=== PATIENT | female | born 1950 | race Caucasian/White ===

== ENCOUNTER 2019-09-20 13:45 | Inpatient (IN) | payer MEDICARE, OTHER ==
[~2019-09-20] VITALS: Ht 162.6 cm; Wt 71.7 kg
[~2019-09-20 13:45] MED LIST: ACYCLOVIR200 MG PO; AMBIEN5 MG PO; ATENOLOL50 MG PO; CYCLOBENZAPRINE5 MG PO; ULTRAM50 MG PO
[2019-09-20] MEDS ORDERED: MORPHINE SULFATE INJ 4 MG/ML INJ 1ML IV STA (13:50)
[2019-09-20] MEDS ORDERED: SODIUM CHLORIDE 0.9% 1000ML 1,000 ML IV STA ×2 (13:50→17:30)
[2019-09-20] MEDS ORDERED: ONDANSETRON HCL INJ 2MG/ML 2ML 2 MG/ML VIAL IV STA (13:50)
[2019-09-20] MEDS ORDERED: HYDROMORPHONE 1MG/1ML INJ IV STA (14:19)
--- NOTE | 2019-09-20 14:26 | NUR ---
states abd pain now, "all over." states morphine brought pain from 07/30 to 06/30. md ordered dilaudid and given ivp per md order. states, "thank you, i thought i was going to have to really yell. I hate to see someone i love in pain."
[2019-09-20] MEDS ORDERED: HYDROMORPHONE 1MG/1ML INJ IV NR ×2 (14:30→15:15)
[2019-09-20] MEDS ORDERED: PROPOFOL IV EMULSION 10 MG/ML 20 ML VIAL ONE (14:35)
[2019-09-20] MEDS ORDERED: LIDOCAINE HCL 2% LOCAL INJ 5 ML SDV VIAL INJ ONE (14:35)
[2019-09-20] MEDS ORDERED: ACETAMINOPHEN 1000 MG/100 ML IV ONE (14:35)
[2019-09-20] MEDS ORDERED: DEXAMETHASONE SOD PHOS INJ 4 MG/ML VIAL ONE (14:35)
[2019-09-20] MEDS ORDERED: ONDANSETRON HCL INJ 2MG/ML 2ML 2 MG/ML VIAL ONE (14:35)
[2019-09-20] MEDS ORDERED: KETOROLAC TROMETHAMINE 30 MG/ML VIAL ONE (14:35)
[2019-09-20 14:36] LABS: BASOPHILS # (AUTO) 0.1 (0.0-0.1); BASOPHILS % 0.4 % (0.0-1.0); EOSINOPHILS # (AUTO) 0.1 (0.0-0.4); EOSINOPHILS % 0.5 % (0.0-6.0); HEMATOCRIT 48.2 % (34.2-44.1); HEMOGLOBIN 15.5 g/dL (12.0-16.0); LYMPHOCYTES # (AUTO) 2.2 (1.0-3.2); LYMPHOCYTES % 13.4 % (18.0-39.1); MEAN CORPUSCULAR HEMOGLOBIN 28.9 pg (28-32); MEAN CORPUSCULAR HGB CONC 32.2 g/dL (31-35); MEAN CORPUSCULAR VOLUME 89.8 fL (81-99); MONOCYTES % 6.2 % (4.4-11.3); NEUTROPHILS # (AUTO) 12.7 (2.1-6.9); NEUTROPHILS % 79.1 % (38.7-80.0); PLATELET COUNT 291 x10e3/uL (140-360); RED BLOOD COUNT 5.37 x10e6/uL (3.6-5.1); RED CELL DISTRIBUTION WIDTH 14.3 % (11.7-14.4)
[2019-09-20 14:37] LABS: BILIRUBIN,URINE NEGATIVE (NEGATIVE); CLARITY,URINE SL CLOUDY (CLEAR); COLOR,URINE YELLOW (YELLOW); KETONES,URINE 1+ (NEGATIVE); LEUKOCYTE ESTERASE ,URINE TRACE (NEGATIVE); NITRITE,URINE NEGATIVE (NEGATIVE); PROTEIN,URINE DIPSTICK NEGATIVE (NEGATIVE); URINE UROBILINOGEN 0.2 mg/dL (0.2 - 1)
[2019-09-20 14:49] LABS: ALANINE AMINOTRANSFERASE 16 IU/L (0-55); ALBUMIN 4.1 g/dL (3.5-5.0); ALBUMIN/GLOBULIN RATIO 1.2 (0.8-2.0); ALKALINE PHOSPHATASE 80 IU/L (40-150); AMYLASE 51 U/L (25-125); ANION GAP 18.2 mmol/L (8-16); BLOOD UREA NITROGEN 13 mg/dL (7-26); BUN/CREATININE RATIO 15 (6-25); CALCIUM 9.6 mg/dL (8.4-10.2); CARBON DIOXIDE 23 mmol/L (22-29); CHLORIDE 107 mmol/L (98-107); CREATININE, SERUM 0.84 mg/dL (0.57-1.11); EST GLOMERULAR FILTRATION RATE > 60 ML/MIN (60-); GLUCOSE 105 mg/dL (74-118); LIPASE 30 U/L (8-78); POTASSIUM 4.2 mmol/L (3.5-5.1); SODIUM 144 mmol/L (136-145)
[2019-09-20 14:52] LABS: BACTERIA,URINE RARE /HPF; EPITHELIAL CELLS,URINE FEW /LPF; RBC,URINE 0-5 /HPF (0-5); WBC,URINE (MAN) 0-5 /HPF (0-5)
[2019-09-20] MEDS ORDERED: HYDROMORPHONE 2MG/ML 2 MG/ML ML IV ONE (15:00)
[2019-09-20] MEDS ORDERED: PIPER-TAZ 3.375 GM 50 ML IV ONE (15:00)
[2019-09-20] MEDS ORDERED: IOPAMIDOL 370 MG/ML 200 ML INFUS..BTL INJ ONE (15:11)
[2019-09-20] MEDS ORDERED: SODIUM CHLORIDE 0.9% 50ML 50 ML ONE (15:11)
--- NOTE | 2019-09-20 15:21 | NUR ---
RECEIVED PT REPORT FROM Beth CALVO RN.
--- NOTE | 2019-09-20 16:28 | Diagnostic Imaging Report ---
CT Abdomen And Pelvis with Intravenous Contrast INDICATION: Abdominal pain, nausea ^lower right abd pain ^[id number] ^1530 TECHNIQUE: Thin collimation axial images obtained from the diaphragm to the level of the pubic symphysis following the uneventful administration of 100 cc of low osmolar, nonionic intravenous contrast. Dose reduction techniques used: Automated exposure control, adjustment of the mAs and/or kVp according to patient size, standardized low-dose protocol, and/or iterative reconstruction technique. RADIATION DOSE: Total DLP: 356.19 mGy*cm Estimated effective dose: (DLP x 0.015 x size factor) mSv CTDIvol has been reviewed. It is below the limits set by the Radiation Protocol Committee (RPC). COMPARISON: None. ABDOMEN FINDINGS: Lung Bases: Mild bibasilar atelectasis. Visualized portions of the mediastinum is normal. Liver: Multiple low attenuating lesions throughout the parenchyma measure up to 2.5 x 2.7 cm. Gallbladder: Present and appears normal. No biliary ductal dilatation. Pancreas: Normal attenuation without mass or ductal dilatation. Spleen: Normal in size. No evidence of mass. Adrenal Glands: No evidence for mass. Kidneys: Right: Normal enhancement. No soft tissue mass. No hydronephrosis. Left: Normal enhancement. Cyst in the upper pole measures 1.5 x 1.6 cm with adjacent scar. No hydronephrosis. Circumaortic left renal vein. Lymph Nodes: No enlarged abdominal or periaortic lymph nodes. Several pericecal lymph nodes are mildly prominent. Aorta: Normal in diameter PELVIS FINDINGS: Bowel: Stomach: Normal. Small Bowel: The small bowel is normal in diameter with normal wall thickness. Large Bowel: Circumferential mural thickening of the cecal base with associated inflammation. Remainder of the large bowel is normal in diameter with normal wall thickness. Diverticulosis coli is present throughout, particularly in the descending colon and sigmoid colon without associated inflammation. There is a calcification at the orifice of the appendix. Appendix: Present and is dilated fluid and contains an intraluminal calcification measuring 16 mm. There is extensive periappendiceal inflammation. No loculated fluid collection or air. Bladder: Normal. The uterus is present and atrophic. No adnexal mass. Peritoneum/retroperitoneum: Small amount of pelvic ascites. No loculated fluid collection. Bones: Mild degenerative changes of the lumbar spine, particularly at L2-3 and L5-S1. Soft tissues: Bilateral breast implants. Small fat-containing umbilical hernia IMPRESSION: 1. Acute appendicitis containing appendicolith and extensive periappendiceal inflammation. No loculated fluid collection or air to suggest rupture. Reactive cecal inflammation. 2. Diverticulosis coli. No evidence for acute diverticulitis. No small bowel obstruction. 3. Multiple hepatic and renal cysts. Signed by: Dr. Kwaku Newsome MD on 09/20/2019 4:25 PM
[2019-09-20] MEDS ORDERED: D5.45%NS/KCL 20MEQ 1,000 ML IV SCH (16:40)
[2019-09-20] MEDS ORDERED: DIPHENHYDRAMINE HCL INJ 50 MG/ML VIAL IV PRN (16:45)
[2019-09-20] MEDS ORDERED: ENALAPRILAT IV INJ 1.25 MG/ML VIAL IV PRN (16:45)
--- OUTSIDE RECORDS SUMMARY | 2019-09-20 16:59 | XMS REPORT ---
Author Author [facility] Address Unknown Phone Unavailable Care Team Providers Care Cell Assembly Pinner Name Role Phone Pattie PUGA Unavailable Unavailable Problems This patient has no known problems. Allergies, Adverse Reactions, Alerts This patient has no known allergies or adverse reactions. Medications This patient has no known medications. Results Test Description Test Time Test Comments Text Results Atomic Results Result Comments CT ABDOMEN/PELVIS W 2019-09-20 16:18:00 [facility] [address] [place] [address] Patient Name: MARCUS GAONA MR #: [id number] : 1950 Age/Sex: 69/F Req #: [id number] Adm Physician: Ordered by: KATARINA MCCLOUD LEAD ETL DEVELOPER Report #: [id number] Location: ER Room/Bed: Procedure: [id number] CT/CT ABDOMEN/PELVIS W Exam Date: 09/20/19 Exam Time: 1530 REPORT STATUS: Signed CT Abdomen And Pelvis with Intravenous Contrast I NDICATION: Abdominal pain, nausea lower right abd pain [id number] 1530 TECHNIQUE: Thin collimation axial images obtained from the diaphragm to the level of the pubic symphysis following the uneventful administration of 100 cc of low osmolar, nonionic intravenous contrast. Dose reduction techniques used: Automated exposure control, adjustment of the mAs and/or kVp according to patient size, standardized low-dose protocol, and/or iterative reconstruction technique. RADIATION DOSE: Total DLP: 356.19 mGy*cm Estimated effective dose: (DLP x 0.015 x size factor) mSv CTDIvol has been reviewed. It is below the limits set by the Radiation Protocol Committee (RPC). COMPARISON: None. ABDOMEN FINDINGS: Lung Bases: Mild bibasilar atelectasis. Visualized portions of the mediastinum is normal. Liver: Multiple low attenuating lesions throughout the parenchyma measure up to 2.5 x 2.7 cm. Gallbladder: Present and appears normal. No biliary ductal dilatation. Pancreas: Normal attenuation without mass or ductal dilatation. Spleen: Normal in size. No evidence of mass. Adrenal Glands: No evidence for mass. Kidneys: Right: Normal enhancement. No soft tissue mass. No hydronephrosis. Left: Normal enhancement. Cyst in the upper pole measures 1.5 x 1.6 cm with adjacent scar. No hydronephrosis. Circumaortic left renal vein. Lymph Nodes: No enlarged abdominal or periaortic lymph nodes. Several pericecal lymph nodes are mildly prominent. Aorta: Normal in diameter PELVIS FINDINGS: Bowel: Stomach: Normal. Small Bowel: The small bowel is normal in diameter with normal wall thickness. Large Bowel: Circumferential mural thickening of the cecal base with associated inflammation. Remainder of the large bowel is normal in diameter with normal wall thickness. Diverticulosis coli is present throughout, particularly in the descending colon and sigmoid colon without associated inflammation. There is a calcification at the orifice of the appendix. Appendix: Present and is dilated fluid and contains an intraluminal calcification measuring 16 mm. There is extensive periappendiceal inflammation. No loculated fluid collection or air. Bladder: Normal. The uterus is present and atrophic. No adnexal mass. Peritoneum/retroperito neum: Small amount of pelvic ascites. No loculated fluid collection. Bones: Mild degenerative changes of the lumbar spine, particularly at L2-3 and L5-S1. Soft tissues: Bilateral breast implants. Small fat-containing umbilical hernia IMPRESSION: 1. Acute appendicitis containing appendicolith and extensive periappendiceal inflammation. No loculated fluid collection or air to suggest rupture. Reactive cecal inflammation. 2. Diverticulosis coli. No evidence for acute diverticulitis. No small bowel obstruction. 3. Multiple hepatic and renal cysts. Signed by: Dr. Jaret Newsome MD on 09/20/2019 4:25 PM Dictated By: JARET NEWSOME MD 26 Transcribed By: SONIYA on 09/20/191624 COPY TO: KATARINA MCCLOUD NP
[2019-09-20] MEDS ORDERED: SODIUM CHLORIDE 0.9% 1000ML 1,000 ML ONE (17:26)
[2019-09-20] MEDS: FAMOTIDINE 20 MG/2 ML VIAL IV SCH (17:29)
[2019-09-20 17:59] VITALS: BP 130/66
[2019-09-20] MEDS ORDERED: PIPER-TAZ 3.375 GM 50 ML IV SCH ×2 (18:00→21:00)
[2019-09-20] MEDS: METRONIDAZOLE 500MG/NS 100ML 100 ML IV SCH ×2 (18:05→23:44)
[2019-09-20] MEDS: HYDROMORPHONE 1MG/1ML INJ IV PRN (18:08)
[2019-09-20 18:10] VITALS: BP 130/66
[2019-09-20] MEDS ORDERED: ZOLPIDEM TARTRA10 MG PO (18:23)
--- NOTE | 2019-09-20 19:45 | NUR ---
PATIENT IS OFF THE UNIT FOR SURGERY.
[2019-09-20] MEDS ORDERED: BUPIVACAINE HCL 0.5% INJ 30 ML VIAL INJ ONE (19:58)
[2019-09-20] MEDS: DEXTROSE 5%/LACTATED RINGERS 1,000 ML IV SCH ×2 (20:43→22:16)
[2019-09-20] MEDS ORDERED: ONDANSETRON HCL INJ 2MG/ML 2ML 2 MG/ML VIAL IV PRN (20:45)
[2019-09-20] MEDS ORDERED: ACETAMINOPHEN 325 MG TAB PO PRN (20:45)
[2019-09-20] MEDS ORDERED: MORPHINE SULFATE INJ 4 MG/ML INJ 1ML IV PRN (20:45)
--- NOTE | 2019-09-20 21:30 | NUR ---
PATIENT CAME FROM PACU PER STRETCHER. ALERT AND ORIENTED. NO COMPLAIN OF PAIN AT THIS TIME.
[2019-09-20 21:41] VITALS: BP 113/54
[2019-09-20] MEDS: ZOLPIDEM TARTRATE 10 MG TAB PO PRN (23:44)
[2019-09-21] VITALS (7 sets, daily range): BP systolic 89–112; BP diastolic 52–55
--- NOTE | 2019-09-21 01:48 | Consultation ---
DATE OF CONSULTATION: 09/20/2019 HISTORY OF PRESENT ILLNESS: The patient is a 69-year-old female, who presents with complaints of abdominal pain. She says the pain started three days ago, generalized and became localized to right lower quadrant. She has some associated nausea. She has not had any fever. She came into the emergency room, where evaluation revealed findings suggestive of acute appendicitis. PAST MEDICAL HISTORY: Significant for hypertension for which she takes atenolol. PAST SURGICAL HISTORY: The only previous abdominal surgery is tubal ligation. ALLERGIES: SHE HAS NO KNOWN ALLERGIES. MEDICATIONS: At home are atenolol, tramadol, and Ambien. FAMILY HISTORY: Noncontributory. SOCIAL HISTORY: The patient does not smoke cigarettes. Occasionally drinks alcohol. REVIEW OF SYSTEMS: As stated above, otherwise was negative. PHYSICAL EXAMINATION: GENERAL: The patient is awake and alert, in no distress. VITAL SIGNS: Normal. HEENT: Sclerae not icteric. NECK: Supple with no masses. LUNGS: Equal breath sounds are clear bilaterally. CARDIAC: Regular rate and rhythm with no murmur. ABDOMEN: Tender in the right lower quadrant, but also diffusely tender with signs of possible generalized peritonitis, but greatest in the right lower quadrant. EXTREMITIES: Warm. There is no edema. Pulses are palpable. NEUROLOGIC: Intact. ASSESSMENT: A 69-year-old female with acute appendicitis with signs of peritonitis. PLAN: Laparoscopic appendectomy. Procedure was explained to the patient including risks, benefits, and alternatives. She understands. She has had the opportunity to ask questions. She is aware of the possible need for open surgery. Thank you for asking me to see Ms. Johnson. MD JOSÉ LUIS Yoon/GUNNAR /[id number]
--- NOTE | 2019-09-21 01:53 | Operative Report ---
DATE OF PROCEDURE: 09/20/2019 SURGEON: Yaakov Hilliard MD PREOPERATIVE DIAGNOSIS: Acute appendicitis. POSTOPERATIVE DIAGNOSIS: Acute appendicitis. PROCEDURE: Diagnostic laparoscopy, laparoscopic appendectomy. ANALYTICAL TECH: None. ANESTHESIA: General endotracheal. INDICATIONS AND FINDINGS: The patient is a 69-year-old female, presenting with complaints of abdominal pain, localized to right lower quadrant. At surgery, the patient was found acutely inflamed appendix. TECHNIQUE: After adequate general endotracheal anesthesia, the patient in supine position, the abdomen was prepped and draped in a sterile fashion with ChloraPrep solution. Skin in the umbilicus was infiltrated with 0.5% Marcaine. An incision was made in the umbilicus. Abdominal wall was elevated and Veress needle was introduced. Pneumoperitoneum was then created. A 10 mm trocar and cannula were passed through the umbilical wound. Laparoscopic camera was introduced. Initial laparoscopy revealed inflammatory process in right lower quadrant. A 12 mm trocar and cannulas were placed suprapubically and a 5 mm trocar and cannula were placed in the right upper quadrant. There was adherent small bowel and pericolonic fat over acutely inflamed appendix. The fibrinous adhesions were broken up. The cecum was elevated. The mesoappendix was divided with LigaSure device until the appendix was completely freed down to the cecum. The base of the appendix was then divided with Endo-MILLICENT stapler freeing the appendix completely. The appendix was placed into an Endopouch and brought out through the suprapubic cannula. Care was taken to not touch the abdominal wall. The area of appendectomy was inspected for hemostasis, which was seen to be adequate. It was irrigated with saline. All fluid aspirated and inspected for hemostasis, which was seen to be adequate. Instruments and cannulas were removed. Pneumoperitoneum was evacuated. Wounds were then closed. Fascia in the umbilical and suprapubic wounds closed with 0 Vicryl. Skin to all wounds closed with luz marina. Sterile dressings were applied to each wound. The patient tolerated the procedure well. Estimated blood loss was 5 mL. There were no complications. All counts were correct, and the patient was taken to the recovery room in satisfactory condition. MD JOSÉ LUIS Yoon/TANNERL /[id number]
--- NOTE | 2019-09-21 02:55 | NUR ---
bp rechecked 112/56 mmhg
[2019-09-21] MEDS: PIPER-TAZ 3.375 GM 50 ML IV SCH ×4 (03:05→21:39)
[2019-09-21] MEDS: HYDROMORPHONE 1MG/1ML INJ IV PRN ×3 (03:05→17:53)
[2019-09-21] MEDS: METRONIDAZOLE 500MG/NS 100ML 100 ML IV SCH ×3 (05:26→17:53)
[2019-09-21 06:20] LABS: BASOPHILS % 0.1 % (0.0-1.0); EOSINOPHILS # (AUTO) 0.1 (0.0-0.4); EOSINOPHILS % 0.8 % (0.0-6.0); HEMATOCRIT 40.8 % (34.2-44.1); HEMOGLOBIN 13.4 g/dL (12.0-16.0); LYMPHOCYTES # (AUTO) 0.8 (1.0-3.2); LYMPHOCYTES % 5.1 % (18.0-39.1); MEAN CORPUSCULAR HEMOGLOBIN 29.3 pg (28-32); MEAN CORPUSCULAR HGB CONC 32.8 g/dL (31-35); MEAN CORPUSCULAR VOLUME 89.3 fL (81-99); MONOCYTES # (AUTO) 0.7 (0.2-0.8); MONOCYTES % 4.7 % (4.4-11.3); NEUTROPHILS # (AUTO) 14.1 (2.1-6.9); NEUTROPHILS % 88.7 % (38.7-80.0); PLATELET COUNT 227 x10e3/uL (140-360); RED BLOOD COUNT 4.57 x10e6/uL (3.6-5.1); RED CELL DISTRIBUTION WIDTH 14.5 % (11.7-14.4)
[2019-09-21 06:40] LABS: ANION GAP 11.8 mmol/L (8-16); BLOOD UREA NITROGEN 8 mg/dL (7-26); BUN/CREATININE RATIO 10 (6-25); CALCIUM 8.3 mg/dL (8.4-10.2); CARBON DIOXIDE 24 mmol/L (22-29); CHLORIDE 108 mmol/L (98-107); CREATININE, SERUM 0.82 mg/dL (0.57-1.11); EST GLOMERULAR FILTRATION RATE > 60 ML/MIN (60-); GLUCOSE 185 mg/dL (74-118); POTASSIUM 3.8 mmol/L (3.5-5.1); SODIUM 140 mmol/L (136-145)
--- NOTE | 2019-09-21 07:00 | NUR ---
received am report and rounds done. pt is alert sitting up in bed, no s/s of distress. iv line was flushed and ivf restarted. call light within reach and instructed pt to call RN for help.
[2019-09-21] MEDS: FAMOTIDINE 20 MG/2 ML VIAL IV SCH ×2 (09:13→17:39)
[2019-09-21] MEDS: HYDROCODONE/APAP 5MG-325MG TAB PO PRN ×2 (10:44→16:46)
[2019-09-21] MEDS ORDERED: SODIUM CHLORIDE 0.9% 250ML 250 ML IV ONE (11:20)
[2019-09-21] MEDS: ONDANSETRON HCL INJ 2MG/ML 2ML 2 MG/ML VIAL IV PRN ×2 (12:11→17:53)
[2019-09-21] MEDS: DEXTROSE 5%/LACTATED RINGERS 1,000 ML IV SCH ×2 (12:43→20:43)
[2019-09-21] MEDS ORDERED: MAGNESIUM HYDROXIDE 30 ML UDC PO ONE (15:15)
--- NOTE | 2019-09-21 19:59 | NUR ---
RECEIVED PT IN BED AOX3 RESPIRATIONS ARE EVEN AND UNLABORED .DENIES PAIN F/C INTACT DRAINING CLEAR URINE .CALL LIGHT WITH IN REACH .CONTINUE TO MONITOR Addendum: 09/21/19 at 2001 by Deana Brito RN WRONG PT
--- NOTE | 2019-09-21 20:02 | NUR ---
RECEIVED PT IN BED AOX3 RESPIRATIONS ARE EVEN AND UNLABORED .3 SITES ABD BAND PT GETTING D5LR 125CC/HR .CALL LIGHT WITH IN REACH .CONTINUE TO MONITOR
[2019-09-21] MEDS: ZOLPIDEM TARTRATE 10 MG TAB PO PRN (21:00)
[2019-09-22] VITALS: BP 96/54
[2019-09-22] MEDS: HYDROMORPHONE 1MG/1ML INJ IV PRN ×3 (02:43→09:13)
[2019-09-22] MEDS: PIPER-TAZ 3.375 GM 50 ML IV SCH ×2 (02:44→09:13)
[2019-09-22 04:00] VITALS: BP 99/54
[2019-09-22] MEDS: METRONIDAZOLE 500MG/NS 100ML 100 ML IV SCH ×2 (05:50)
[2019-09-22] MEDS: DEXTROSE 5%/LACTATED RINGERS 1,000 ML IV SCH (05:50)
--- NOTE | 2019-09-22 07:00 | NUR ---
received am report and rounds done. pt is alert sitting up in bed, no s/s of distress. call lightwithin reach and instructed pt to call RN for help.
[2019-09-22 07:48] VITALS: BP 138/60
[2019-09-22 07:57] VITALS: BP 138/60
[2019-09-22] MEDS: FAMOTIDINE 20 MG/2 ML VIAL IV SCH (09:13)
[2019-09-22] MEDS: ONDANSETRON HCL INJ 2MG/ML 2ML 2 MG/ML VIAL IV PRN (09:13)
[2019-09-22 11:40] VITALS: BP 124/76
== END 2019-09-22 11:53 | disposition home or self-care (01) | DRG 340 ==
LOC: ER 13:45 → ERHOLD 16:40 → MED/SURG3 17:51
PROC: 0DTJ4ZZ Resection of Appendix, Percutaneous Endoscopic Approach (ICD-10-PCS; 2019-09-20)
PROC: 0DTJ4ZZ Resection of Appendix, Percutaneous Endoscopic Approach (ICD-10-PCS; principal; 2019-09-20 20:04)
DX: K35.33 Acute appendicitis with perforation, localized peritonitis, and gangrene, with abscess (principal); I10 Essential (primary) hypertension; F32.9 Major depressive disorder, single episode, unspecified
CPT/HCPCS: 36415; 74177; 80048; 80053; 81001; 82150; 83690; 85025; 88304; 93005; 99284; J1100; J1170; J1885; J2001; J2270; J2405; J2543; J7030; J7050; Q9967

== ENCOUNTER 2020-06-08 22:13 | Emergency (ER) | payer MEDICARE, OTHER ==
[~2020-06-08] VITALS: Ht 162.6 cm; Wt 63.5 kg
[~2020-06-08 22:13] MED LIST changes: +ZOLPIDEM TARTRA10 MG PO
[2020-06-08] MEDS ORDERED: PANTOPRAZOLE 40 MG 10ML VIAL IV STA (22:23)
[2020-06-08] MEDS ORDERED: BELLADONNA ALK/PHENOBARBITAL 5 ML UDC PO ONE (22:30)
[2020-06-08] MEDS ORDERED: LIDOCAINE VISC 2% SOLN 15 ML UDC PO ONE (22:30)
[2020-06-08] MEDS ORDERED: MAGNESIUM/ALUMINUM/SIMETHICONE 30 ML UDC PO ONE (22:30)
[2020-06-08 22:35] LABS: BASOPHILS # (AUTO) 0.1 (0.0-0.1); BASOPHILS % 0.6 % (0.0-1.0); EOSINOPHILS # (AUTO) 0.3 (0.0-0.4); EOSINOPHILS % 3.4 % (0.0-6.0); HEMATOCRIT 46.1 % (34.2-44.1); HEMOGLOBIN 14.7 g/dL (12.0-16.0); LYMPHOCYTES # (AUTO) 3.6 (1.0-3.2); LYMPHOCYTES % 36.3 % (18.0-39.1); MEAN CORPUSCULAR HEMOGLOBIN 29.1 pg (28-32); MEAN CORPUSCULAR HGB CONC 31.9 g/dL (31-35); MEAN CORPUSCULAR VOLUME 91.3 fL (81-99); NEUTROPHILS # (AUTO) 4.9 (2.1-6.9); NEUTROPHILS % 49.5 % (38.7-80.0); PLATELET COUNT 231 x10e3/uL (140-360); RED BLOOD COUNT 5.05 x10e6/uL (3.6-5.1); RED CELL DISTRIBUTION WIDTH 13.2 % (11.7-14.4)
[2020-06-08 22:54] LABS: AMYLASE 66 U/L (25-125); LIPASE 58 U/L (8-78)
[2020-06-08 22:56] LABS: ALANINE AMINOTRANSFERASE 22 IU/L (0-55); ALBUMIN 3.9 g/dL (3.5-5.0); ALBUMIN/GLOBULIN RATIO 1.1 (0.8-2.0); ALKALINE PHOSPHATASE 80 IU/L (40-150); ANION GAP 15.7 mmol/L (8-16); BLOOD UREA NITROGEN 14 mg/dL (7-26); BUN/CREATININE RATIO 15 (6-25); CALCIUM 9.6 mg/dL (8.4-10.2); CARBON DIOXIDE 26 mmol/L (22-29); CHLORIDE 106 mmol/L (98-107); CREATINE KINASE 62 IU/L (29-168); CREATININE, SERUM 0.91 mg/dL (0.57-1.11); EST GLOMERULAR FILTRATION RATE > 60 ML/MIN (60-); GLUCOSE 101 mg/dL (74-118); POTASSIUM 3.7 mmol/L (3.5-5.1); SODIUM 144 mmol/L (136-145)
--- OUTSIDE RECORDS SUMMARY | 2020-06-08 23:07 | XMS REPORT | Continuity of Care Document ---
Author Author [facility] t Organization [facility] Address [address] [place] [address] Phone Unavailable Care Team Providers Care Construction Specialist Name Role Phone TRACEY JARA, ERNESTINE FRANKANFORMERLY [facility] PCP Pattie PUGA Attphys Unavailable Payers Payer Name Policy Type Policy Number Effective Date Expiration Date S harrison Miscellaneous Ppo [id number] 2017 00:00:00 [facility] Medicare A & B [id number] 2017 00:00:00 [facility] Problems Condition Name Condition Details Condition Category Status Onset Date Resolution Date Last Treatment Date Treating Clinician Comments Source Chest pain Chest pain Problem Active 2016-07-10 00:00:00 [facility] Appendicitis with peritonitis Appendicitis with peritonitis Problem Active [facility] Acute appendicitis Appendicitis, acute Problem Active [facility] Allergies, Adverse Reactions, Alerts Allergy Name Allergy Type Status Severity Reaction(s) Onset Date Inacti ve Date Treating Clinician Comments Source No Known Contrast Allergies DA Active U 2004-10-27 00:00: 00 [facility] No Known Drug Allergies DA Active U 2004-10-27 00:00:00 [facility] No Known Food Allergies DA Active U 2004-10-27 00:00:00 [facility] No Known Other Allergies DA Active U 2004-10-27 00:00:00 [facility] Medications Ordered Medication Name Filled Medication Name Start Date Stop Da te Current Medication? Ordering Clinician Indication Dosage Frequency Signature (SIG) Comments Components Source Atenolol 50 Mg Tablet Atenolol 50 Mg Tablet Yes 50 Daily [facility] Tramadol Hcl (Ultram) 50 Mg Tablet Tramadol Hcl (Ultram) 50 Mg Tablet Yes 50 Every 6 Hours as needed for Pain [facility] Zolpidem Tartrate 10 Mg Tablet Zolpidem Tartrate 10 Mg Tablet Yes 10 Bedtime as needed for Insomnia [facility] Acyclovir 200 Mg Capsule, 800 Mg Oral Acyclovir 200 Mg Capsule, 800 Mg Oral 2019-09-20 00:00:00 No 800 As Needed [facility] Cyclobenzaprine Hcl (Flexeril) 5 Mg Tablet, 5 Mg Oral Cyclobenzaprine Hcl (Flexeril) 5 Mg Tablet, 5 Mg Oral 2019-09-20 00:00:00 No 5 Bedtime as needed for Pain [facility] Zolpidem Tartrate (Ambien) 5 Mg Tablet, 5 Mg Oral Zolp idem Tartrate (Ambien) 5 Mg Tablet, 5 Mg Oral 2019-09-20 00:00:00 No 5 Bed time [facility] Procedures Procedure Date / Time Performed Performing Clinician [facility] Computed tomography of abdomen and pelvis with contrast 2018 00:00:00 KATARINA MCCLOUD [facility] RESECTION OF APPENDIX, PERCUTANEOUS ENDOSCOPIC APPROACH 2018 00:00:00 GREGORY LOZOYA [facility] Encounters Start Date/Time End Date/Time Encounter Type [facility] ID Source 2019-10-19 22:31:00 2019-10-19 22:54:00 Departed Emergency Room [facility] [id number] [facility] 2019-09-20 16:40:00 2019-09-22 11:53:00 Discharged Inpatient 1 TRACEY PUGA [facility] [id number] [facility] Results Test Description Test Time Test Comments Results Result Comments Source Sodium Level 2019-09-21 06:42:00 Test Item Sodium Level (test code = 2951-2) 140 136-145 [facility] Wfzcg3190-88-50 06:42:00* Test Item Value Reference Range Interpretation Comments Potassium Level (test code = 2823-3) 3.8 3.5-5.1 [facility] HospitalChloride Lhicw6880-79-92 06:42:00* Test Item Value Reference Range Interpretation Comments Chloride Level (test code = 2075-0) 108 98-107 H [facility] HospitalCarbon Dioxide Kdmlc6447-96-03 06:42:00* Test Item Value Reference Range Interpretation Comments Carbon Dioxide Level (test code = 2028-9) 24 22-29 [facility] HospitalAnion Gbi8297-86-25 06:42:00* Test Item Value Reference Range Interpretation Comments Anion Gap (test code = 32309-4) 11.8 8-16 [facility]Blood Urea Nueesarq5628-56-98 06:42:00* Test Item Value Reference Range Interpretation Comments Blood Urea Nitrogen (test code = 3094-0) 8 7-26 [facility] HospitalCreatinine2019-12-02 06:42:00* Test Item Value Reference Range Interpretation Comments Creatinine (test code = 2160-0) 0.82 0.57-1.11 [facility] HospitalBUN/Creatinine Akgqm0719-33-62 06:42:00* Test Item Value Reference Range Interpretation Comments BUN/Creatinine Ratio (test code = 3097-3) 10 6-25 [facility] HospitalEstimat Glomerular Filtration Rate 2019-09-21 06:42:00* Test Item Value Reference Range Interpretation Comments Estimat Glomerular Filtration Rate (test code = 775012080) > 60 >60 Ranges were taken from the National Kidney Disease Education Program and the [facility] Foundation literature.Reference ranges:60 or greater: Dgygjv55-92 ( for 3 consecutive months): Chronic kidney disease 15 or less: Kidney failureRolling Plains Memorial HospitalGlucose Ukjnb5212-17-38 06:42:00* Test Item Value Reference Range Interpretation Comments Glucose Level (test code = PLC9719) 185 74-118 H [facility] HospitalCalcium Gkkvg9130-40-22 06:42:00* Test Item Value Reference Range Interpretation Comments Calcium Level (test code = 08258-0) 8.3 8.4-10.2 [facility] Bdjtl2192-72-93 06:42:00* Test Item Value Reference Range Interpretation Comments Sodium Level (test code = 2951-2) 140 136-145 [facility] HospitalPotassium Kuios1638-64-86 06:42:00* Test Item Value Reference Range Interpretation Comments Potassium Level (test code = 2823-3) 3.8 3.5-5.1 [facility] HospitalChloride Viebd7562-06-17 06:42:00* Test Item Value Reference Range Interpretation Comments Chloride Level (test code = 2075-0) 108 98-107 H [facility] HospitalCarbon Dioxide Mjscx3053-06-92 06:42:00* Test Item Value Reference Range Interpretation Comments Carbon Dioxide Level (test code = 2028-9) 24 22-29 [facility] HospitalAnion Zer9153-15-52 06:42:00* Test Item Value Reference Range Interpretation Comments Anion Gap (test code = 52439-8) 11.8 8-16 [facility] HospitalBlood Urea Lmteyvtd8179-03-74 06:42:00* Test Item Value Reference Range Interpretation Comments Blood Urea Nitrogen (test code = 3094-0) 8 7-26 [facility] HospitalCreatinine2019-12-02 06:42:00* Test Item Value Reference Range Interpretation Comments Creatinine (test code = 2160-0) 0.82 0.57-1.11 [facility] HospitalBUN/Creatinine Vjccz5972-08-08 06:42:00* Test Item Value Reference Range Interpretation Comments BUN/Creatinine Ratio (test code = 3097-3) 10 6-25 [facility] HospitalEstimat Glomerular Filtration Rate 2019-09-21 06:42:00* Test Item Value Reference Range Interpretation Comments Estimat Glomerular Filtration Rate (test code = 851219115) > 60 >60 Ranges were taken from the National Kidney Disease Education Program and the [place] Kidney Foundation literature.Reference ranges:60 or greater: Ovcrvz91-84 ( for 3 consecutive months): Chronic kidney disease 15 or less: Kidney failureRolling Plains Memorial HospitalGlucose Ffyrz1817-10-64 06:42:00* Test Item Value Reference Range Interpretation Comments Glucose Level (test code = KZG9472) 185 74-118 H [facility] HospitalCalcium Hsxbk1698-67-48 06:42:00* Test Item Value Reference Range Interpretation Comments Calcium Level (test code = 19263-1) 8.3 8.4-10.2 L [facility] HospitalWhite Blood Omfhj9619-84-02 06:26:00* Test Item Value Reference Range Interpretation Comments White Blood Count (test code = 6690-2) 15.88 4.8-10.8 H [facility] HospitalRed Blood Pkfbg4015-23-96 06:26:00* Test Item Value Reference Range Interpretation Comments Red Blood Count (test code = 789-8) 4.57 3.6-5.1 [facility] HospitalHemoglobin2019-12-02 06:26:00* Test Item Value Reference Range Interpretation Comments Hemoglobin (test code = 75628-1) 13.4 12.0-16.0 [facility] HospitalHematocrit2019-12-02 06:26:00* Test Item Value Reference Range Interpretation Comments Hematocrit (test code = 4544-3) 40.8 34.2-44.1 [facility] HospitalMean Corpuscular Wrbzxk0950-06-90 06:26:00* Test Item Value Reference Range Interpretation Comments Mean Corpuscular Volume (test code = 787-2) 89.3 81-99 [facility] HospitalMean Corpuscular Tswxexvadg9173-53-89 06:26:00* Test Item Value Reference Range Interpretation Comments Mean Corpuscular Hemoglobin (test code = 785-6) 29.3 28-32 [facility] HospitalMean Corpuscular Hemoglobin Concent 2019-09-21 06:26:00* Test Item Value Reference Range Interpretation Comments Mean Corpuscular Hemoglobin Concent (test code = 786-4) 32.8 31-35 [facility] HospitalRed Cell Distribution Iwpgm3618-23-26 06:26:00* Test Item Value Reference Range Interpretation Comments Red Cell Distribution Width (test code = 06527-6) 14.5 11.7 -14.4 H [facility] HospitalPlatelet Mojjs1692-28-80 06:26:00* Test Item Value Reference Range Interpretation Comments Platelet Count (test code = 777-3) 227 140-360 [facility] HospitalNeutrophils (%) (Auto)2019-09-21 06:26:00 * Test Item Value Reference Range Interpretation Comments Neutrophils (%) (Auto) (test code = 80408-7) 88.7 38.7-80.0 H [facility] HospitalLymphocytes (%) (Auto)2019-09-21 06:26:00 * Test Item Value Reference Range Interpretation Comments Lymphocytes (%) (Auto) (test code = 736-9) 5.1 18.0-39.1 L [facility] HospitalMonocytes (%) (Auto)2019-09-21 06:26:00* Test Item Value Reference Range Interpretation Comments Monocytes (%) (Auto) (test code = 5905-5) 4.7 4.4-11.3 [facility] HospitalEosinophils (%) (Auto)2019-09-21 06:26:00 * Test Item Value Reference Range Interpretation Comments Eosinophils (%) (Auto) (test code = 713-8) 0.8 0.0-6.0 [facility] HospitalBasophils (%) (Auto)2019-09-21 06:26:00* Test Item Value Reference Range Interpretation Comments Basophils (%) (Auto) (test code = 706-2) 0.1 0.0-1.0 [facility] HospitalIM GRANULOCYTES %2019-09-21 06:26:00* Test Item Value Reference Range Interpretation Comments IM GRANULOCYTES % (test code = IM GRANULOCYTES %) 0.6 0.0- 1.0 [facility] HospitalNeutrophils # (Auto)2019-09-21 06:26:00* Test Item Value Reference Range Interpretation Comments Neutrophils # (Auto) (test code = 751-8) 14.1 2.1-6.9 H [facility] HospitalLymphocytes # (Auto)2019-09-21 06:26:00* Test Item Value Reference Range Interpretation Comments Lymphocytes # (Auto) (test code = 16772-5) 0.8 1.0-3.2 L [facility] HospitalMonocytes # (Auto)2019-09-21 06:26:00* Test Item Value Reference Range Interpretation Comments Monocytes # (Auto) (test code = 742-7) 0.7 0.2-0.8 [facility] HospitalEosinophils # (Auto)2019-09-21 06:26:00* Test Item Value Reference Range Interpretation Comments Eosinophils # (Auto) (test code = 711-2) 0.1 0.0-0.4 [facility] HospitalBasophils # (Auto)2019-09-21 06:26:00* Test Item Value Reference Range Interpretation Comments Basophils # (Auto) (test code = 704-7) 0.0 0.0-0.1 [facility] HospitalAbsolute Immature Granulocyte (auto 2019-09-21 06:26:00* Test Item Value Reference Range Interpretation Comments Absolute Immature Granulocyte (auto (ghanshyam t code = Absolute Immature Granulocyte (auto) 0.09 0-0.1 [facility] HospitalWhite Blood Zpmfq4970-73-51 06:26:00* Test Item Value Reference Range Interpretation Comments White Blood Count (test code = 6690-2) 15.88 4.8-10.8 H [facility] HospitalRed Blood Jebay1608-99-06 06:26:00* Test Item Value Reference Range Interpretation Comments Red Blood Count (test code = 789-8) 4.57 3.6-5.1 [facility] HospitalHemoglobin2019-12-02 06:26:00* Test Item Value Reference Range Interpretation Comments Hemoglobin (test code = 08104-3) 13.4 12.0-16.0 [facility] HospitalHematocrit2019-12-02 06:26:00* Test Item Value Reference Range Interpretation Comments Hematocrit (test code = 4544-3) 40.8 34.2-44.1 [facility] HospitalMean Corpuscular Pblala9363-34-02 06:26:00* Test Item Value Reference Range Interpretation Comments Mean Corpuscular Volume (test code = 787-2) 89.3 81-99 [facility] HospitalMean Corpuscular Bqdjozaalc2965-25-73 06:26:00* Test Item Value Reference Range Interpretation Comments Mean Corpuscular Hemoglobin (test code = 785-6) 29.3 28-32 [facility] HospitalMean Corpuscular Hemoglobin Concent 2019-09-21 06:26:00* Test Item Value Reference Range Interpretation Comments Mean Corpuscular Hemoglobin Concent (test code = 786-4) 32.8 31-35 [facility] HospitalRed Cell Distribution Ucafv7213-03-69 06:26:00* Test Item Value Reference Range Interpretation Comments Red Cell Distribution Width (test code = 56238-2) 14.5 11.7 -14.4 H [facility] HospitalPlatelet Efwda8822-04-33 06:26:00* Test Item Value Reference Range Interpretation Comments Platelet Count (test code = 777-3) 227 140-360 [facility] HospitalNeutrophils (%) (Auto)2019-09-21 06:26:00 * Test Item Value Reference Range Interpretation Comments Neutrophils (%) (Auto) (test code = 74927-3) 88.7 38.7-80.0 H [facility] HospitalLymphocytes (%) (Auto)2019-09-21 06:26:00 * Test Item Value Reference Range Interpretation Comments Lymphocytes (%) (Auto) (test code = 736-9) 5.1 18.0-39.1 L [facility] HospitalMonocytes (%) (Auto)2019-09-21 06:26:00* Test Item Value Reference Range Interpretation Comments Monocytes (%) (Auto) (test code = 5905-5) 4.7 4.4-11.3 [facility] HospitalEosinophils (%) (Auto)2019-09-21 06:26:00 * Test Item Value Reference Range Interpretation Comments Eosinophils (%) (Auto) (test code = 713-8) 0.8 0.0-6.0 [facility] HospitalBasophils (%) (Auto)2019-09-21 06:26:00* Test Item Value Reference Range Interpretation Comments Basophils (%) (Auto) (test code = 706-2) 0.1 0.0-1.0 [facility] HospitalIM GRANULOCYTES %2019-09-21 06:26:00* Test Item Value Reference Range Interpretation Comments IM GRANULOCYTES % (test code = IM GRANULOCYTES %) 0.6 0.0- 1.0 [facility] HospitalNeutrophils # (Auto)2019-09-21 06:26:00* Test Item Value Reference Range Interpretation Comments Neutrophils # (Auto) (test code = 751-8) 14.1 2.1-6.9 H [facility] HospitalLymphocytes # (Auto)2019-09-21 06:26:00* Test Item Value Reference Range Interpretation Comments Lymphocytes # (Auto) (test code = 65808-1) 0.8 1.0-3.2 L [facility] HospitalMonocytes # (Auto)2019-09-21 06:26:00* Test Item Value Reference Range Interpretation Comments Monocytes # (Auto) (test code = 742-7) 0.7 0.2-0.8 [facility] HospitalEosinophils # (Auto)2019-09-21 06:26:00* Test Item Value Reference Range Interpretation Comments Eosinophils # (Auto) (test code = 711-2) 0.1 0.0-0.4 [facility] HospitalBasophils # (Auto)2019-09-21 06:26:00* Test Item Value Reference Range Interpretation Comments Basophils # (Auto) (test code = 704-7) 0.0 0.0-0.1 [facility] HospitalAbsolute Immature Granulocyte (auto 2019-09-21 06:26:00* Test Item Value Reference Range Interpretation Comments Absolute Immature Granulocyte (auto (ghanshyam t code = Absolute Immature Granulocyte (auto) 0.09 0-0.1 [facility] [id number] 16:18:00 [facility] [address] [address] Patient Name: MARCUS GAONA MR #: [id number] : 1950 Age/Sex: 69/F Req #: [id number] Adm Physician: Ordered by: KATARINA MCCLOUD SENIOR NET ARCHITECT Report #: [id number] Location: ER Room/Bed: Procedure: [id number] CT/ CT ABDOMEN/PELVIS W Exam Date: 09/20/19 Exam Time: 1 530 REPORT STATUS: Signed CT Abd omen And Pelvis with Intravenous Contrast INDICATION: Abdominal pain, naus ea lower right abd pain [id number] TECHNIQUE: Thin collimation axial images obtained from the diaphragm to the level of the pubic symphysis following the uneventful administration of 100 cc of low osmolar, nonionic in travenous contrast. Dose reduction techniques used: Automated exposure cont rol, adjustment of the mAs and/or kVp according to patient size, standardized low-dose protocol, and/or iterative reconstruction technique. RADIATIO N DOSE: Total DLP: 356.19 mGy*cm Estimated effective dose: (DL P x 0.015 x size factor) mSv CTDIvol has been reviewed. It is below the l imits set by the Radiation Protocol Committee (RPC). COMPARISON: None. ABDOMEN FINDINGS: Lung Bases: Mild bibasilar atelectasis. Visualized po rtions of the mediastinum is normal. Liver: Multiple low attenuating lesi ons throughout the parenchyma measure up to 2.5 x 2.7 cm. Gallbladder: Pr esent and appears normal. No biliary ductal dilatation. Pancreas: Normal at tenuation without mass or ductal dilatation. Spleen: Normal in size. No ev idence of mass. Adrenal Glands: No evidence for mass. Kidneys: R ight: Normal enhancement. No soft tissue mass. No hydronephrosis. Left: Normal enhancement. Cyst in the upper pole measures 1.5 x 1.6 cm with adjacen t scar. No hydronephrosis. Circumaortic left renal vein. Lymph Nodes: No e nlarged abdominal or periaortic lymph nodes. Several pericecal lymph nodes are mildly prominent. Aorta: Normal in diameter PELVIS FINDINGS: Bowel: Stomach: Normal. Small Bowel: The small bowel is normal in diame ter with normal wall thickness. Large Bowel: Circumferential mural thic kening of the cecal base with associated inflammation. Remainder of the large bowel is normal in diameter with normal wall thickness. Diverticulosis coli is present throughout, particularly in the descending colon and sigmoid colon wi thout associated inflammation. There is a calcification at the orifice of the appendix. Appendix: Present and is dilated fluid and contains an intralum inal calcification measuring 16 mm. There is extensive periappendiceal inflamm ation. No loculated fluid collection or air. Bladder: Normal. The ut erus is present and atrophic. No adnexal mass. Peritoneum/retroperitoneum: Small amount of pelvic ascites. No loculated fluid collection. Bones: Mil d degenerative changes of the lumbar spine, particularly at L2-3 and L5-S1. Soft tissues: Bilateral breast implants. Small fat-containing umbilical hernia IMPRESSION: 1. Acute appendicitis containing appendicolith and ext ensive periappendiceal inflammation. No loculated fluid collection or air to s uggest rupture. Reactive cecal inflammation. 2. Diverticulosis coli. No evidence for acute diverticulitis. No small bowel obstruction. 3. Multip le hepatic and renal cysts. Signed by: Dr. Jaret Newsome MD on 09/20/20 4:25 PM Dictated By: JARET NEWSOME MD 24 Transcribed By: SONIYA on 09/20/191624 COPY TO: KATARINA MCCLOUD NP Urine [id number] 14:52:00* Test Item Value Reference Range Interpretation Comments Urine WBC (test code = 5821-4) 0-5 0-5 [facility] [id number] 14:52:00* Test Item Value Reference Range Interpretation Comments Urine RBC (test code = 31600-6) 0-5 0-5 [facility] HospitalU[facility] Videronc6634-92-07 14:52:00* Test Item Value Reference Range Interpretation Comments Urine Bacteria (test code = 68595-7) RARE NONE [facility] HospitalU[facility] Epithelial Vvqtn1000-49-08 14:52:00 * Test Item Value Reference Range Interpretation Comments Urine Epithelial Cells (test code = 10492-7) FEW NONE [facility] HospitalU[facility] [id number] 14:52:00* Test Item Value Reference Range Interpretation Comments Urine WBC (test code = 5821-4) 0-5 0-5 [facility] [id number] 14:52:00* Test Item Value Reference Range Interpretation Comments Urine RBC (test code = 45186-8) 0-5 0-5 [facility] HospitalU[facility] Flhyxiwt4823-70-82 14:52:00* Test Item Value Reference Range Interpretation Comments Urine Bacteria (test code = 03278-4) RARE NONE [facility] HospitalU[facility] Epithelial Pvqnv2490-79-31 14:52:00 * Test Item Value Reference Range Interpretation Comments Urine Epithelial Cells (test code = 51907-9) FEW NONE [facility] HospitalTotal Ehfyzmslr3836-90-05 14:51:00* Test Item Value Reference Range Interpretation Comments Total Bilirubin (test code = 1975-2) 0.6 0.2-1.2 [facility] HospitalAspartate Amino Transf (AST/SGOT) 2019-09-20 14:51:00* Test Item Value Reference Range Interpretation Comments Aspartate Amino Transf (AST/SGOT) (test code = Aspartate Amino Transf (AST/SGOT)) 19 5-34 [facility] HospitalAlanine Aminotransferase (ALT/SGPT) 2019-09-20 14:51:00* Test Item Value Reference Range Interpretation Comments Alanine Aminotransferase (ALT/SGPT) (test code = 1742-6) 16 0-55 [facility] HospitalTotal Zimigjs7486-18-66 14:51:00* Test Item Value Reference Range Interpretation Comments Total Protein (test code = 2885-2) 7.4 6.5-8.1 [facility] HospitalAlbumin2019-12-01 14:51:00* Test Item Value Reference Range Interpretation Comments Albumin (test code = 1751-7) 4.1 3.5-5.0 [facility] HospitalGlobulin2019-12-01 14:51:00* Test Item Value Reference Range Interpretation Comments Globulin (test code = 11669-3) 3.3 2.3-3.5 [facility] HospitalAlbumin/Globulin [id number] 14:51:00 * Test Item Value Reference Range Interpretation Comments Albumin/Globulin Ratio (test code = 1759-0) 1.2 0.8-2.0 [facility] HospitalAlkaline Prmyisnegro0661-31-47 14:51:00* Test Item Value Reference Range Interpretation Comments Alkaline Phosphatase (test code = 6768-6) 80 40-150 [facility] HospitalAmylase Hhwkw7263-08-85 14:51:00* Test Item Value Reference Range Interpretation Comments Amylase Level (test code = 1798-8) 51 25-125 [facility] HospitalLipase2019-12-01 14:51:00* Test Item Value Reference Range Interpretation Comments Lipase (test code = 3040-3) 30 8-78 [facility] HospitalTotal Tkigqjpub7646-67-56 14:51:00* Test Item Value Reference Range Interpretation Comments Total Bilirubin (test code = 1975-2) 0.6 0.2-1.2 [facility] HospitalAspartate Amino Transf (AST/SGOT) 2019-09-20 14:51:00* Test Item Value Reference Range Interpretation Comments Aspartate Amino Transf (AST/SGOT) (test code = Aspartate Amino Transf (AST/SGOT)) 19 5-34 [facility] HospitalAlanine Aminotransferase (ALT/SGPT) 2019-09-20 14:51:00* Test Item Value Reference Range Interpretation Comments Alanine Aminotransferase (ALT/SGPT) (test code = 1742-6) 16 0-55 [facility] HospitalTotal Pscwtke8917-02-75 14:51:00* Test Item Value Reference Range Interpretation Comments Total Protein (test code = 2885-2) 7.4 6.5-8.1 [facility] HospitalAlbumin2019-12-01 14:51:00* Test Item Value Reference Range Interpretation Comments Albumin (test code = 1751-7) 4.1 3.5-5.0 [facility] HospitalGlobulin2019-12-01 14:51:00* Test Item Value Reference Range Interpretation Comments Globulin (test code = 50962-6) 3.3 2.3-3.5 [facility] HospitalAlbumin/Globulin [id number] 14:51:00 * Test Item Value Reference Range Interpretation Comments Albumin/Globulin Ratio (test code = 1759-0) 1.2 0.8-2.0 [facility] HospitalAlkaline Jqhqaklhrtd9517-64-83 14:51:00* Test Item Value Reference Range Interpretation Comments Alkaline Phosphatase (test code = 6768-6) 80 40-150 [facility] HospitalAmylase Xjsnu3521-77-69 14:51:00* Test Item Value Reference Range Interpretation Comments Amylase Level (test code = 1798-8) 51 25-125 [facility] HospitalLipase2019-12-01 14:51:00* Test Item Value Reference Range Interpretation Comments Lipase (test code = 3040-3) 30 8-78 [facility] [id number] 14:38:00* Test Item Value Reference Range Interpretation Comments Urine Color (test code = 5778-6) YELLOW YELLOW [facility] [id number] 14:38:00* Test Item Value Reference Range Interpretation Comments Urine Clarity (test code = 16601-5) SL CLOUDY CLEAR [facility] Specific [id number] 14:38:00 * Test Item Value Reference Range Interpretation Comments Urine Specific [place] (test code = 5811-5) >=1.030 1.010-1.02 5 [facility] [id number] 14:38:00* Test Item Value Reference Range Interpretation Comments Urine pH (test code = 06871-9) 5.5 5-7 [facility] Leukocyte [id number] 14:38:00* Test Item Value Reference Range Interpretation Comments Urine Leukocyte Esterase (test code = 14954-2) TRACE NEGATIV E H [facility] [id number] 14:38:00* Test Item Value Reference Range Interpretation Comments Urine Nitrite (test code = 09989-5) NEGATIVE NEGATIVE [facility] [id number] 14:38:00* Test Item Value Reference Range Interpretation Comments Urine Protein (test code = 26444-3) NEGATIVE NEGATIVE [facility] Glucose (UA)2019-09-20 14:38:00* Test Item Value Reference Range Interpretation Comments Urine Glucose (UA) (test code = 88097-5) NEGATIVE NEGATIVE [facility] [id number] 14:38:00* Test Item Value Reference Range Interpretation Comments Urine Ketones (test code = 87022-7) 1+ NEGATIVE H [facility] [id number] 14:38:00* Test Item Value Reference Range Interpretation Comments Urine Urobilinogen (test code = 11566-3) 0.2 0.2-1 [facility] [id number] 14:38:00* Test Item Value Reference Range Interpretation Comments Urine Bilirubin (test code = 1977-8) NEGATIVE NEGATIVE [facility] [id number] 14:38:00* Test Item Value Reference Range Interpretation Comments Urine Blood (test code = 12004-7) NEGATIVE NEGATIVE [facility] [id number] 14:38:00* Test Item Value Reference Range Interpretation Comments Urine Color (test code = 5778-6) YELLOW YELLOW [facility] [id number] 14:38:00* Test Item Value Reference Range Interpretation Comments Urine Clarity (test code = 97956-4) SL CLOUDY CLEAR [facility] [id number] 14:38:00 * Test Item Value Reference Range Interpretation Comments Urine Specific [place] (test code = 5811-5) >=1.030 1.010-1.02 5 [facility] [id number] 14:38:00* Test Item Value Reference Range Interpretation Comments Urine pH (test code = 03875-2) 5.5 5-7 [facility] Leukocyte [id number] 14:38:00* Test Item Value Reference Range Interpretation Comments Urine Leukocyte Esterase (test code = 88797-9) TRACE NEGATIV E H [facility] [id number] 14:38:00* Test Item Value Reference Range Interpretation Comments Urine Nitrite (test code = 95052-6) NEGATIVE NEGATIVE [facility] [id number] 14:38:00* Test Item Value Reference Range Interpretation Comments Urine Protein (test code = 53835-2) NEGATIVE NEGATIVE [facility] Glucose (UA)2019-09-20 14:38:00* Test Item Value Reference Range Interpretation Comments Urine Glucose (UA) (test code = 57923-0) NEGATIVE NEGATIVE [facility] [id number] 14:38:00* Test Item Value Reference Range Interpretation Comments Urine Ketones (test code = 59873-6) 1+ NEGATIVE H [facility] [id number] 14:38:00* Test Item Value Reference Range Interpretation Comments Urine Urobilinogen (test code = 30951-4) 0.2 0.2-1 [facility] [id number] 14:38:00* Test Item Value Reference Range Interpretation Comments Urine Bilirubin (test code = 1977-8) NEGATIVE NEGATIVE [facility] [id number] 14:38:00* Test Item Value Reference Range Interpretation Comments Urine Blood (test code = 31954-3) NEGATIVE NEGATIVE [facility]
[2020-06-08 23:08] LABS: BILIRUBIN,URINE NEGATIVE (NEGATIVE); CLARITY,URINE CLEAR (CLEAR); COLOR,URINE YELLOW (YELLOW); KETONES,URINE NEGATIVE (NEGATIVE); LEUKOCYTE ESTERASE ,URINE TRACE (NEGATIVE); NITRITE,URINE NEGATIVE (NEGATIVE); PROTEIN,URINE DIPSTICK NEGATIVE (NEGATIVE); URINE UROBILINOGEN 0.2 mg/dL (0.2 - 1)
[2020-06-08 23:13] LABS: BACTERIA,URINE FEW /HPF; EPITHELIAL CELLS,URINE FEW /LPF; RBC,URINE 0-5 /HPF (0-5)
--- NOTE | 2020-06-08 23:15 | Emergency Department Note ---
History of Present Illnes History of Present Illness Chief Complaint: Chest Pain History of Present Illness This is a 70 year old female pt with h/o hiatal hernia with chest pain since 530 pm after eating dinner, states had same pain 2 days ago, states at this time pain is improving, denies sob. . Historian: Patient Arrival Mode: Car Street Sprinkler Required: No Onset (how long ago): hour(s) (5) Location: substernal Radiation: Reports non-radiation Severity: moderate Duration (how long): hour(s) (5) Timing of current episode: constant Progression: partially resolved Chronicity: recurrent Context: Denies recent illness, Denies recent surgery, Denies trauma/injury Relieving factors: none Exacerbating factors: other (eating) Treatments prior to arrival: none Past Medical/Family History Physician Review I have reviewed the patient's past medical and family history. Any updates have been documented here. Past Medical History Recent Fever: No Clinical Suspicion of Infectio: No New/Unexplained Change in Ment: No Past Medical History: Hypertension, Depression, Osteoarthritis Other Medical History: Insomnia Diverticulitis hiatal hernia Past Surgical History: Appendectomy, Tubal Ligation Other Surgery: Breast augmentation Right knee surgery Social History Smoking Cessation: Never Smoker Alcohol Use: None Any Illegal Drug Use: No Family History Family history of heart diseas: No Other Last Tetanus: UTP Review of Systems Review of Systems Constitutional: Reports no symptoms EENTM: Reports no symptoms Cardiovascular: Reports as per HPI Respiratory: Reports no symptoms Gastrointestinal: Reports no symptoms Genitourinary: Reports no symptoms Musculoskeletal: Reports no symptoms Integumentary: Reports no symptoms Neurological: Reports no symptoms Psychological: Reports no symptoms Endocrine: Reports no symptoms Hematological/Lymphatic: Reports no symptoms Physical Exam Related Data Allergies: Coded Allergies: No Known Allergies (Unverified , 07/10/16) Triage Vital Signs Vital Signs Date Time Temp Pulse Resp B/P (MAP) Pulse Ox O2 Delivery O2 Flow Rate FiO2 06/08/20 22:17 97.5 101 20 166/87 100 Room Air Vital signs reviewed: Yes Physical Exam CONSTITUTIONAL Constitutional: Present well-developed, Present well-nourished HENT HENT: Present normocephalic, Present atraumatic, Present oropharynx clear/moist, Present nose normal HENT L/R: Present left ext ear normal, Present right ext ear normal EYES Eyes: Reports PERRL, Reports conjunctivae normal NECK Neck: Present ROM normal PULMONARY Pulmonary: Present effort normal, Present breath sounds normal CARDIOVASCULAR Cardiovascular: Present regular rhythm, Present heart sounds normal, Present capillary refill normal, Present normal rate GASTROINTESTINAL Abdominal: Present soft, Present bowel sounds normal, Present tender (mild epigastric, cause pain to radiate to chest, states same pain she has been having last 5 hours) GENITOURINARY Genitourinary: Present exam deferred SKIN Skin: Present warm, Present dry MUSCULOSKELETAL Musculoskeletal: Present ROM normal NEUROLOGICAL Neurological: Present alert, Present oriented x 3, Present no gross motor or sensory deficits PSYCHOLOGICAL Psychological: Present mood/affect normal, Present judgement normal Results Laboratory Result Diagram: 06/08/20222506/08/202225 Laboratory Laboratory Tests Test 06/08/20 22:30 06/08/20 22:26 Urine Color Yellow (YELLOW) Urine Clarity Clear (CLEAR) Urine pH 5.5 (5 - 7) Urine Specific [place] 1.025 (1.010-1.025) Urine Protein Negative (NEGATIVE) Urine Glucose (UA) Negative (NEGATIVE) Urine Ketones Negative (NEGATIVE) Urine Blood Trace (NEGATIVE) Urine Nitrite Negative (NEGATIVE) Urine Bilirubin Negative (NEGATIVE) Urine Urobilinogen 0.2 mg/dL (0.2 - 1) Urine Leukocyte Esterase Trace (NEGATIVE) Urine RBC 0-5 /HPF (0-5) Urine WBC 6-10 /HPF (0-5) Urine Epithelial Cells Few /LPF (NONE) Urine Bacteria Few /HPF (NONE) White Blood Count 9.92 x10e3/uL (4.8-10.8) Red Blood Count 5.05 x10e6/uL (3.6-5.1) Hemoglobin 14.7 g/dL (12.0-16.0) Hematocrit 46.1 % (34.2-44.1) Mean Corpuscular Volume 91.3 fL (81-99) Mean Corpuscular Hemoglobin 29.1 pg (28-32) Mean Corpuscular Hemoglobin Concent 31.9 g/dL (31-35) Red Cell Distribution Width 13.2 % (11.7-14.4) Platelet Count 231 x10e3/uL (140-360) Neutrophils (%) (Auto) 49.5 % (38.7-80.0) Lymphocytes (%) (Auto) 36.3 % (18.0-39.1) Monocytes (%) (Auto) 10.0 % (4.4-11.3) Eosinophils (%) (Auto) 3.4 % (0.0-6.0) Basophils (%) (Auto) 0.6 % (0.0-1.0) Neutrophils # (Auto) 4.9 (2.1-6.9) Lymphocytes # (Auto) 3.6 (1.0-3.2) Monocytes # (Auto) 1.0 (0.2-0.8) Eosinophils # (Auto) 0.3 (0.0-0.4) Basophils # (Auto) 0.1 (0.0-0.1) Absolute Immature Granulocyte (auto 0.02 x10e3/uL (0-0.1) Sodium Level 144 mmol/L (136-145) Potassium Level 3.7 mmol/L (3.5-5.1) Chloride Level 106 mmol/L (98-107) Carbon Dioxide Level 26 mmol/L (22-29) Anion Gap 15.7 mmol/L (8-16) Blood Urea Nitrogen 14 mg/dL (7-26) Creatinine 0.91 mg/dL (0.57-1.11) Estimat Glomerular Filtration Rate > 60 ML/MIN (60-) BUN/Creatinine Ratio 15 (6-25) Glucose Level 101 mg/dL (74-118) Calcium Level 9.6 mg/dL (8.4-10.2) Total Bilirubin 0.5 mg/dL (0.2-1.2) Aspartate Amino Transf (AST/SGOT) 22 IU/L (5-34) Alanine Aminotransferase (ALT/SGPT) 22 IU/L (0-55) Alkaline Phosphatase 80 IU/L (40-150) Creatine Kinase 62 IU/L (29-168) Creatine Kinase MB 0.20 ng/mL (0-5.0) Troponin I 0.003 ng/mL (0-0.300) Total Protein 7.5 g/dL (6.5-8.1) Albumin 3.9 g/dL (3.5-5.0) Globulin 3.6 g/dL (2.3-3.5) Albumin/Globulin Ratio 1.1 (0.8-2.0) Amylase Level 66 U/L (25-125) Lipase 58 U/L (8-78) Laboratory Tests Test 06/08/20 22:30 06/08/20 22:26 Urine Color Yellow (YELLOW) Urine Clarity Clear (CLEAR) Urine pH 5.5 (5 - 7) Urine Specific [place] 1.025 (1.010-1.025) Urine Protein Negative (NEGATIVE) Urine Glucose (UA) Negative (NEGATIVE) Urine Ketones Negative (NEGATIVE) Urine Blood Trace (NEGATIVE) Urine Nitrite Negative (NEGATIVE) Urine Bilirubin Negative (NEGATIVE) Urine Urobilinogen 0.2 mg/dL (0.2 - 1) Urine Leukocyte Esterase Trace (NEGATIVE) White Blood Count 9.92 x10e3/uL (4.8-10.8) Red Blood Count 5.05 x10e6/uL (3.6-5.1) Hemoglobin 14.7 g/dL (12.0-16.0) Hematocrit 46.1 % (34.2-44.1) Mean Corpuscular Volume 91.3 fL (81-99) Mean Corpuscular Hemoglobin 29.1 pg (28-32) Mean Corpuscular Hemoglobin Concent 31.9 g/dL (31-35) Red Cell Distribution Width 13.2 % (11.7-14.4) Platelet Count 231 x10e3/uL (140-360) Neutrophils (%) (Auto) 49.5 % (38.7-80.0) Lymphocytes (%) (Auto) 36.3 % (18.0-39.1) Monocytes (%) (Auto) 10.0 % (4.4-11.3) Eosinophils (%) (Auto) 3.4 % (0.0-6.0) Basophils (%) (Auto) 0.6 % (0.0-1.0) Neutrophils # (Auto) 4.9 (2.1-6.9) Lymphocytes # (Auto) 3.6 (1.0-3.2) Monocytes # (Auto) 1.0 (0.2-0.8) Eosinophils # (Auto) 0.3 (0.0-0.4) Basophils # (Auto) 0.1 (0.0-0.1) Absolute Immature Granulocyte (auto 0.02 x10e3/uL (0-0.1) Sodium Level 144 mmol/L (136-145) Potassium Level 3.7 mmol/L (3.5-5.1) Chloride Level 106 mmol/L (98-107) Carbon Dioxide Level 26 mmol/L (22-29) Anion Gap 15.7 mmol/L (8-16) Blood Urea Nitrogen 14 mg/dL (7-26) Creatinine 0.91 mg/dL (0.57-1.11) Estimat Glomerular Filtration Rate > 60 ML/MIN (60-) BUN/Creatinine Ratio 15 (6-25) Glucose Level 101 mg/dL (74-118) Calcium Level 9.6 mg/dL (8.4-10.2) Total Bilirubin 0.5 mg/dL (0.2-1.2) Aspartate Amino Transf (AST/SGOT) 22 IU/L (5-34) Alanine Aminotransferase (ALT/SGPT) 22 IU/L (0-55) Alkaline Phosphatase 80 IU/L (40-150) Creatine Kinase 62 IU/L (29-168) Creatine Kinase MB 0.20 ng/mL (0-5.0) Troponin I 0.003 ng/mL (0-0.300) Total Protein 7.5 g/dL (6.5-8.1) Albumin 3.9 g/dL (3.5-5.0) Globulin 3.6 g/dL (2.3-3.5) Albumin/Globulin Ratio 1.1 (0.8-2.0) Amylase Level 66 U/L (25-125) Lipase 58 U/L (8-78) Lab results reviewed: Yes Procedures 12 Lead ECG Interpretation ECG Interpretation : ECG: ECG [address]: Interpreted by ED physician Date: Jun 08, 2020 Time: 22:17 Prior ECG tracings: reviewed Rhythm: sinus tachycardia Rate: tachycardia BPM: 102 QRS axis: normal T waves normal: Yes Q waves: V1, V2 Clinical Impression: abnormal ECG Assessment & Plan Medical Decision Making MDM pt with upper abd pain radiating to chest, h/o hiatal hernia cbc, cmp, amylase, lipase, cxr, cardiac enzymes, ekg ordered to eval for myocardial infarction, pancreatitis, elevated lft's, pneumonia. electrolyte abnormality gi cocktail po ordered protonix 40 mg iv ordered Reassessment Reassessment time: 00:05 Reassessment PT PAIN FREE AFTER PROTONIC AND GI COCKTAIL Assessment & Plan Final Impression: (1) GERD (gastroesophageal reflux disease) (2) Hiatal hernia Depart Disposition: HOME, SELF-CARE Last Vital Signs Date Time Temp Pulse Resp B/P (MAP) Pulse Ox O2 Delivery O2 Flow Rate FiO2 06/08/20 22:47 98.2 74 20 137/88 99 Room Air Home Meds Reported Medications Zolpidem Tartrate (ZOLPIDEM TARTRATE) 10 Mg Tablet, 10 MG PO HS PRN for INSOMNIA, #30 TAB 09/20/19 Tramadol Hcl (ULTRAM) 50 Mg Tablet, 50 MG PO Q6H PRN for PAIN, TAB 07/10/16 Atenolol (ATENOLOL) 50 Mg Tablet, 50 MG PO DAILY 07/10/16 Medications in the ED Pantoprazole Sodium 40 mg NOW STAT IV Last administered on 06/08/20at 22:47; Admin Dose 40 MG; Start 06/08/20 at 22:23; Stop 06/08/20 at 22:34; Status DC Lidocaine HCl 20 ml ONCE ONCE PO Last administered on 06/08/20at 22:47; Admin Dose 20 ML; Start 06/08/20 at 22:30; Stop 06/08/20 at 22:34; Status DC Magnesium Aluminum Silicate 30 ml ONCE ONCE PO Last administered on 06/08/20at 22:47; Admin Dose 30 ML; Start 06/08/20 at 22:30; Stop 06/08/20 at 22:34; Status DC Belladonna Alkaloids/ Phenobarbital 10 ml ONCE ONCE PO Last administered on 06/08/20at 22:47; Admin Dose 10 ML; Start 06/08/20 at 22:30; Stop 06/08/20 at 22:34; Status DC VICKI BURTON MD Jun 08, 2020 23:15
--- NOTE | 2020-06-09 00:07 | Diagnostic Imaging Report ---
EXAMINATION: CHEST SINGLE (PORTABLE) INDICATION: Chest pain COMPARISON: None FINDINGS: TUBES and LINES: None. LUNGS: Normal lung volumes. Lungs are clear. No consolidations. PLEURA: No pleural effusion or pneumothorax. HEART AND MEDIASTINUM: The cardiomediastinal silhouette is unremarkable. BONES AND SOFT TISSUES: No acute osseous lesion. Soft tissues are unremarkable. UPPER ABDOMEN: No free air under the diaphragm. IMPRESSION: No acute thoracic radiographic abnormality. Signed by: Alvino Escobar DO on 06/09/2020 12:03 AM
[2020-06-09 00:13] VITALS: BP 125/81
== END 2020-06-09 00:38 | disposition home or self-care (01) ==
LOC: ER 22:45
DX: K21.9 Gastro-esophageal reflux disease without esophagitis (principal); K44.9 Diaphragmatic hernia without obstruction or gangrene; I10 Essential (primary) hypertension; F32.9 Major depressive disorder, single episode, unspecified; G47.00 Insomnia, unspecified
CPT/HCPCS: 36415; 71045; 80053; 81001; 82150; 82550; 82553; 83690; 84484; 85025; 93005; 99284; C9113

== ENCOUNTER 2020-09-02 10:58 | Inpatient (IN) | payer MEDICARE, OTHER ==
[2020-08-30 13:40] LABS: BASOPHILS # (AUTO) 0.1 (0.0-0.1); BASOPHILS % 0.6 % (0.0-1.0); EOSINOPHILS # (AUTO) 0.1 (0.0-0.4); EOSINOPHILS % 0.7 % (0.0-6.0); HEMOGLOBIN 14.9 g/dL (12.0-16.0); LYMPHOCYTES # (AUTO) 2.4 (1.0-3.2); MEAN CORPUSCULAR HEMOGLOBIN 29.6 pg (28-32); MEAN CORPUSCULAR HGB CONC 32.4 g/dL (31-35); MEAN CORPUSCULAR VOLUME 91.5 fL (81-99); MONOCYTES # (AUTO) 0.8 (0.2-0.8); MONOCYTES % 9.4 % (4.4-11.3); NEUTROPHILS # (AUTO) 5.2 (2.1-6.9); NEUTROPHILS % 61.1 % (38.7-80.0); PLATELET COUNT 247 x10e3/uL (140-360); RED BLOOD COUNT 5.03 x10e6/uL (3.6-5.1); RED CELL DISTRIBUTION WIDTH 13.7 % (11.7-14.4)
[2020-08-30 13:51] LABS: ALANINE AMINOTRANSFERASE 23 IU/L (0-55); ALBUMIN 4.1 g/dL (3.5-5.0); ALBUMIN/GLOBULIN RATIO 1.2 (0.8-2.0); ALKALINE PHOSPHATASE 63 IU/L (40-150); BLOOD UREA NITROGEN 12 mg/dL (7-26); BUN/CREATININE RATIO 14 (6-25); CALCIUM 9.4 mg/dL (8.4-10.2); CARBON DIOXIDE 28 mmol/L (22-29); CHLORIDE 106 mmol/L (98-107); CREATININE, SERUM 0.86 mg/dL (0.57-1.11); EST GLOMERULAR FILTRATION RATE > 60 ML/MIN (60-); GLUCOSE 87 mg/dL (74-118); SODIUM 143 mmol/L (136-145)
--- NOTE | 2020-08-30 14:03 | Diagnostic Imaging Report ---
EXAMINATION: CHEST 2 VIEWS INDICATION: Preop for hernia surgery ^[id number] ^1325 ^PRE OP COMPARISON: 06/08/2020 FINDINGS: TUBES and LINES: None. LUNGS: Lungs are well inflated. Lungs are clear. There is no evidence of pneumonia or pulmonary edema. PLEURA: No pleural effusion or pneumothorax. HEART AND MEDIASTINUM: The cardiomediastinal silhouette is unremarkable. BONES AND SOFT TISSUES: No acute osseous lesion. Soft tissues are unremarkable. UPPER ABDOMEN: No free air under the diaphragm. IMPRESSION: No acute thoracic abnormality. Signed by: Dr. Tian Napier M.D. on 08/30/2020 1:59 PM
[~2020-09-02] VITALS: Ht 162.6 cm; Wt 64.4 kg
[~2020-09-02 10:58] MED LIST changes: +FAMOTIDINE40 MG; +GAVISCON LIQUI355 ML; +MAGNESIUM; +MULTI-VITAMIN1 EACH; +OMEPRAZOLE40 MG
[2020-09-02] MEDS ORDERED: CEFAZOLIN SOD 1 GM/NS 50ML 100 ML IV ONE (11:14)
[2020-09-02] MEDS ORDERED: PANTOPRAZOLE SO40 MG PO (11:18)
[2020-09-02] MEDS ORDERED: BUPIVACAINE HCL 0.5% INJ 30 ML VIAL INJ ONE (13:10)
[2020-09-02] MEDS ORDERED: FENTANYL CITRATE/PF 100MCG/2 ML INJ ONE (15:01)
[2020-09-02] MEDS ORDERED: HYDROMORPHONE 1MG/1ML INJ ONE (15:13)
[2020-09-02] MEDS ORDERED: MEPERIDINE HCL INJ 25 MG/ML VIAL ONE (15:36)
--- NOTE | 2020-09-02 16:00 | NUR ---
ASSUMED CARE. PATIENT AAOX3. ACYANOTIC. RESTING IN BED. NO DISTRESS NOTED. HOB ELEVATED TO 30 DEGREE ANGLE. CALL LIGHT IN REACH. SIDE RAILS UP X2. BED LOW AND LOCKED.
--- OUTSIDE RECORDS SUMMARY | 2020-09-02 16:07 | XMS REPORT | Continuity of Care Document ---
Author Author [facility] t Organization [facility] Address [address] [place] [address] Phone Unavailable Care Team Providers Care Promotion Specialist Name Role Phone TRACEY JARA, [facility] PCP GREGORY LOZOYA Attphys Unavailable Oh BURTON Attphys Unavailable Pattie PUGA Attphys Unavailable Payers Payer Name Policy Type Policy Number Effective Date Expiration Date S harrison Miscellaneous Ppo [id number] 2017 00:00:00 [facility] Medicare A & B [id number] 2017 00:00:00 [facility] Problems Condition Name Condition Details Condition Category Status Onset Date Resolution Date Last Treatment Date Treating Clinician Comments Source Chest pain Chest pain Problem Active 2016-07-10 00:00:00 [facility] Appendicitis with peritonitis Appendicitis with peritonitis Problem Active [facility] Acute appendicitis Appendicitis, acute Problem Active [facility] Allergies, Adverse Reactions, Alerts Allergy Name Allergy Type Status Severity Reaction(s) Onset Date Inacti ve Date Treating Clinician Comments Source No Known Contrast Allergies DA Active U 2004-10-27 00:00: 00 [facility] No Known Drug Allergies DA Active U 2004-10-27 00:00:00 [facility] No Known Food Allergies DA Active U 2004-10-27 00:00:00 [facility] No Known Other Allergies DA Active U 2004-10-27 00:00:00 [facility] Medications Ordered Medication Name Filled Medication Name Start Date Stop Da te Current Medication? Ordering Clinician Indication Dosage Frequency Signature (SIG) Comments Components Source Atenolol 50 Mg Tablet Atenolol 50 Mg Tablet Yes 50 Daily [facility] Tramadol Hcl (Ultram) 50 Mg Tablet Tramadol Hcl (Ultram) 50 Mg Tablet Yes 50 Every 6 Hours as needed for Pain [facility] Zolpidem Tartrate 10 Mg Tablet Zolpidem Tartrate 10 Mg Tablet Yes 10 Bedtime as needed for Insomnia [facility] Acyclovir 200 Mg Capsule, 800 Mg Oral Acyclovir 200 Mg Capsule, 800 Mg Oral 2019-09-20 00:00:00 No 800 As Needed [facility] Cyclobenzaprine Hcl (Flexeril) 5 Mg Tablet, 5 Mg Oral Cyclobenzaprine Hcl (Flexeril) 5 Mg Tablet, 5 Mg Oral 2019-09-20 00:00:00 No 5 Bedtime as needed for Pain [facility] Zolpidem Tartrate (Ambien) 5 Mg Tablet, 5 Mg Oral Zolp idem Tartrate (Ambien) 5 Mg Tablet, 5 Mg Oral 2019-09-20 00:00:00 No 5 Bed time [facility] Procedures Procedure Date / Time Performed Performing Clinician [facility] e Computed tomography of abdomen and pelvis with contrast 2018 00:00:00 KATARINA MCCLOUD [facility] RESECTION OF APPENDIX, PERCUTANEOUS ENDOSCOPIC APPROACH 2018 00:00:00 GREGORY LOZOYA [facility] Encounters Start Date/Time End Date/Time Encounter Type Admission Type [facility] Care Department Encounter ID Source 2019-10-19 22:31:00 2019-10-19 22:54:00 Departed Emergency Room [facility] [id number] [facility] 2019-09-20 16:40:00 2019-09-22 11:53:00 Discharged Inpatient 1 TRACEY PUGA [facility] [id number] [facility] Results Test Description Test Time Test Comments Results Result Comments Source CHEST 2 VIEWS 2020-08-30 13:59:00 [facility] 1950 Sex: [place] [address] Patient Name: MARCUS GAONA MR #: [id number] : 1950 Age/Sex: 70/F Req #: [id number] [facility] Physician: Ordered by: GREGORY LOZOYA MD Report #: [id number] Location: OR Room/Bed: Procedure: [id number] DX/CHEST 2 VIEWS Exam Date: 08/30/20 Exam Time: 1325 REPORT STATUS: Signed EXAMINATION: CHEST 2 VIEWS INDICATION: Preop for hernia surgery [id number] PRE OP COMPARISON: 06/08/2020 FINDINGS: TUBES and LINES: None. LUNGS: Lungs are well inflated. Lungs are clear. There is no evidence of pneumonia or pulmonary edema. PLEURA: No pleural effusion or pneumothorax. HEART AND MEDIASTINUM: The cardiomediastinal silhouette is unremarkable. BONES AND SOFT TISSUES: No acute osseous lesion. Soft tissues are unremarkable. UPPER ABDOMEN: No free air under the diaphragm. IMPRESSION: No acute thoracic abnormality. Signed by: Dr. Torey Napier M.D. on 08/30/2020 1:59 PM Dictated By: TOREY NAPIER MD, MD 58 Transcribed By: SONIYA on 08/30/201358 COPY TO: GREGOYR LOZOYA MD CHEST SINGLE (PORTABLE) 2020-06-09 00:02:00 [place] [address] Patient Name: MARCUS GAONA MR #: [id number] : 1950 Age/Sex: 70/F Req #: [id number] Adm Physician: Ordered by: VICKI BURTON MD Report #: [id number] Location: ER Room/Bed: Procedure: [id number] DX/CHEST SINGLE (PORTABLE) Exam Date: 06/08/20 Exam Time: 2240 REPORT STATUS: Signed EXAMINATION: CHEST SINGLE (PORTABLE) INDICATION: Chest pain COMPARISON: None FINDINGS: TUBES and LINES: None. LUNGS: Normal lung volumes. Lungs are clear. No consolidations. PLEURA: No pleural effusion or pneumothorax. HEART AND MEDIASTINUM: The cardiomediastinal silhouette is unremarkable. BONES AND SOFT TISSUES: No acute osseous lesion. Soft tissues are unremarkable. UPPER ABDOMEN: No free air under the diaphragm. IMPRESSION: No acute thoracic radiographic abnormality. Signed by: Alvino Escobar DO on 06/09/2020 12:03 AM Dictated By: ALVINO ESCOBAR DO 0003 Transcribed By: SONIYA on 06/09/20 0003 COPY TO: VICKI BURTON MD Sodium Level 2019-09-21 06:42:00 Test Item Sodium Level (test code = 2951-2) 140 136-145 [facility] Gxjhj3537-72-05 06:42:00* Test Item Value Reference Range Interpretation Comments Potassium Level (test code = 2823-3) 3.8 3.5-5.1 [facility] SystemChloride Bdlos2665-41-38 06:42:00* Test Item Value Reference Range Interpretation Comments Chloride Level (test code = 2075-0) 108 98-107 H [facility] SystemCarbon Dioxide Asbeu9683-42-40 06:42:00* Test Item Value Reference Range Interpretation Comments Carbon Dioxide Level (test code = 2028-9) 24 22-29 [facility] SystemAnion Szu0409-79-06 06:42:00* Test Item Value Reference Range Interpretation Comments Anion Gap (test code = 82137-1) 11.8 8-16 [facility] SystemBlood Urea Mmvwimpt2506-53-83 06:42:00* Test Item Value Reference Range Interpretation Comments Blood Urea Nitrogen (test code = 3094-0) 8 7-26 [facility] SystemCreatinine2019-12-02 06:42:00* Test Item Value Reference Range Interpretation Comments Creatinine (test code = 2160-0) 0.82 0.57-1.11 [facility] SystemBUN/Creatinine Mjpct6825-22-38 06:42:00* Test Item Value Reference Range Interpretation Comments BUN/Creatinine Ratio (test code = 3097-3) 10 6-25 [facility] SystemEstimat Glomerular Filtration Rate 2019-09-21 06:42:00* Test Item Value Reference Range Interpretation Comments Estimat Glomerular Filtration Rate (test code = 545765831) > 60 >60 Ranges were taken from the National Kidney Disease Education Program and the [facility] literature.Reference ranges:60 or greater: Ujxozt00-13 ( for 3 consecutive months): Chronic kidney disease 15 or less: Kidney failureUnited Regional Healthcare SystemGlucose Hgbzv2444-36-58 06:42:00* Test Item Value Reference Range Interpretation Comments Glucose Level (test code = GLS2750) 185 74-118 H [facility] SystemCalcium Obejl1963-65-99 06:42:00* Test Item Value Reference Range Interpretation Comments Calcium Level (test code = 46561-4) 8.3 8.4-10.2 [facility] Fxqgv6325-94-31 06:42:00* Test Item Value Reference Range Interpretation Comments Sodium Level (test code = 2951-2) 140 136-145 [facility] SystemPotassium Zudfb8521-11-43 06:42:00* Test Item Value Reference Range Interpretation Comments Potassium Level (test code = 2823-3) 3.8 3.5-5.1 [facility] SystemChloride Xzzit6462-58-38 06:42:00* Test Item Value Reference Range Interpretation Comments Chloride Level (test code = 2075-0) 108 98-107 H [facility] SystemCarbon Dioxide Xdhvq5903-31-56 06:42:00* Test Item Value Reference Range Interpretation Comments Carbon Dioxide Level (test code = 2028-9) 24 22-29 [facility] SystemAnion Zbn6356-41-65 06:42:00* Test Item Value Reference Range Interpretation Comments Anion Gap (test code = 75307-9) 11.8 8-16 [facility] SystemBlood Urea Wdiuhskr8398-69-37 06:42:00* Test Item Value Reference Range Interpretation Comments Blood Urea Nitrogen (test code = 3094-0) 8 7-26 [facility] SystemCreatinine2019-12-02 06:42:00* Test Item Value Reference Range Interpretation Comments Creatinine (test code = 2160-0) 0.82 0.57-1.11 [facility] SystemBUN/Creatinine Xrjpy7267-13-95 06:42:00* Test Item Value Reference Range Interpretation Comments BUN/Creatinine Ratio (test code = 3097-3) 10 6-25 [facility] SystemEstimat Glomerular Filtration Rate 2019-09-21 06:42:00* Test Item Value Reference Range Interpretation Comments Estimat Glomerular Filtration Rate (test code = 282692494) > 60 >60 Ranges were taken from the National Kidney Disease Education Program and the [facility] Foundation literature.Reference ranges:60 or greater: Lqbrxg64-19 ( for 3 consecutive months): Chronic kidney disease 15 or less: Kidney failureUnited Regional Healthcare SystemGlucose Ncpxo0399-11-32 06:42:00* Test Item Value Reference Range Interpretation Comments Glucose Level (test code = FYM7688) 185 74-118 H [facility] SystemCalcium Annpd3175-37-72 06:42:00* Test Item Value Reference Range Interpretation Comments Calcium Level (test code = 08391-6) 8.3 8.4-10.2 L [facility] SystemWhite Blood Ulymh0641-00-13 06:26:00* Test Item Value Reference Range Interpretation Comments White Blood Count (test code = 6690-2) 15.88 4.8-10.8 H [facility] SystemRed Blood Tosbw4152-30-93 06:26:00* Test Item Value Reference Range Interpretation Comments Red Blood Count (test code = 789-8) 4.57 3.6-5.1 [facility] SystemHemoglobin2019-12-02 06:26:00* Test Item Value Reference Range Interpretation Comments Hemoglobin (test code = 71873-3) 13.4 12.0-16.0 [facility] SystemHematocrit2019-12-02 06:26:00* Test Item Value Reference Range Interpretation Comments Hematocrit (test code = 4544-3) 40.8 34.2-44.1 [facility] SystemMean Corpuscular Pxwpzw3821-96-17 06:26:00* Test Item Value Reference Range Interpretation Comments Mean Corpuscular Volume (test code = 787-2) 89.3 81-99 [facility] SystemMean Corpuscular Asfimknonj6594-61-96 06:26:00* Test Item Value Reference Range Interpretation Comments Mean Corpuscular Hemoglobin (test code = 785-6) 29.3 28-32 [facility] SystemMean Corpuscular Hemoglobin Concent 2019-09-21 06:26:00* Test Item Value Reference Range Interpretation Comments Mean Corpuscular Hemoglobin Concent (test code = 786-4) 32.8 31-35 [facility] SystemRed Cell Distribution Kuxkc2766-80-24 06:26:00* Test Item Value Reference Range Interpretation Comments Red Cell Distribution Width (test code = 73575-8) 14.5 11.7 -14.4 H [facility] SystemPlatelet Wisxs1154-70-57 06:26:00* Test Item Value Reference Range Interpretation Comments Platelet Count (test code = 777-3) 227 140-360 [facility] SystemNeutrophils (%) (Auto)2019-09-21 06:26:00 * Test Item Value Reference Range Interpretation Comments Neutrophils (%) (Auto) (test code = 47897-2) 88.7 38.7-80.0 H [facility] SystemLymphocytes (%) (Auto)2019-09-21 06:26:00 * Test Item Value Reference Range Interpretation Comments Lymphocytes (%) (Auto) (test code = 736-9) 5.1 18.0-39.1 L [facility] SystemMonocytes (%) (Auto)2019-09-21 06:26:00* Test Item Value Reference Range Interpretation Comments Monocytes (%) (Auto) (test code = 5905-5) 4.7 4.4-11.3 [facility] SystemEosinophils (%) (Auto)2019-09-21 06:26:00 * Test Item Value Reference Range Interpretation Comments Eosinophils (%) (Auto) (test code = 713-8) 0.8 0.0-6.0 [facility] SystemBasophils (%) (Auto)2019-09-21 06:26:00* Test Item Value Reference Range Interpretation Comments Basophils (%) (Auto) (test code = 706-2) 0.1 0.0-1.0 [facility] SystemIM GRANULOCYTES %2019-09-21 06:26:00* Test Item Value Reference Range Interpretation Comments IM GRANULOCYTES % (test code = IM GRANULOCYTES %) 0.6 0.0- 1.0 [facility] SystemNeutrophils # (Auto)2019-09-21 06:26:00* Test Item Value Reference Range Interpretation Comments Neutrophils # (Auto) (test code = 751-8) 14.1 2.1-6.9 H [facility] SystemLymphocytes # (Auto)2019-09-21 06:26:00* Test Item Value Reference Range Interpretation Comments Lymphocytes # (Auto) (test code = 11258-4) 0.8 1.0-3.2 L [facility] SystemMonocytes # (Auto)2019-09-21 06:26:00* Test Item Value Reference Range Interpretation Comments Monocytes # (Auto) (test code = 742-7) 0.7 0.2-0.8 [facility] SystemEosinophils # (Auto)2019-09-21 06:26:00* Test Item Value Reference Range Interpretation Comments Eosinophils # (Auto) (test code = 711-2) 0.1 0.0-0.4 [facility] SystemBasophils # (Auto)2019-09-21 06:26:00* Test Item Value Reference Range Interpretation Comments Basophils # (Auto) (test code = 704-7) 0.0 0.0-0.1 [facility] SystemAbsolute Immature Granulocyte (auto 2019-09-21 06:26:00* Test Item Value Reference Range Interpretation Comments Absolute Immature Granulocyte (auto (ghanshyam t code = Absolute Immature Granulocyte (auto) 0.09 0-0.1 [facility] SystemWhite Blood Uugdt0276-85-15 06:26:00* Test Item Value Reference Range Interpretation Comments White Blood Count (test code = 6690-2) 15.88 4.8-10.8 H [facility] SystemRed Blood Cqxev6046-79-13 06:26:00* Test Item Value Reference Range Interpretation Comments Red Blood Count (test code = 789-8) 4.57 3.6-5.1 [facility] SystemHemoglobin2019-12-02 06:26:00* Test Item Value Reference Range Interpretation Comments Hemoglobin (test code = 23556-0) 13.4 12.0-16.0 [facility] SystemHematocrit2019-12-02 06:26:00* Test Item Value Reference Range Interpretation Comments Hematocrit (test code = 4544-3) 40.8 34.2-44.1 [facility] SystemMean Corpuscular Qjgxlc2155-30-92 06:26:00* Test Item Value Reference Range Interpretation Comments Mean Corpuscular Volume (test code = 787-2) 89.3 81-99 [facility] SystemMean Corpuscular Dbpkguwibn5068-85-36 06:26:00* Test Item Value Reference Range Interpretation Comments Mean Corpuscular Hemoglobin (test code = 785-6) 29.3 28-32 [facility] SystemMean Corpuscular Hemoglobin Concent 2019-09-21 06:26:00* Test Item Value Reference Range Interpretation Comments Mean Corpuscular Hemoglobin Concent (test code = 786-4) 32.8 31-35 [facility] SystemRed Cell Distribution Yjvty5596-36-07 06:26:00* Test Item Value Reference Range Interpretation Comments Red Cell Distribution Width (test code = 20478-1) 14.5 11.7 -14.4 H [facility] SystemPlatelet Eqzba5942-51-35 06:26:00* Test Item Value Reference Range Interpretation Comments Platelet Count (test code = 777-3) 227 140-360 [facility] SystemNeutrophils (%) (Auto)2019-09-21 06:26:00 * Test Item Value Reference Range Interpretation Comments Neutrophils (%) (Auto) (test code = 68985-6) 88.7 38.7-80.0 H [facility] SystemLymphocytes (%) (Auto)2019-09-21 06:26:00 * Test Item Value Reference Range Interpretation Comments Lymphocytes (%) (Auto) (test code = 736-9) 5.1 18.0-39.1 L [facility] SystemMonocytes (%) (Auto)2019-09-21 06:26:00* Test Item Value Reference Range Interpretation Comments Monocytes (%) (Auto) (test code = 5905-5) 4.7 4.4-11.3 [facility] SystemEosinophils (%) (Auto)2019-09-21 06:26:00 * Test Item Value Reference Range Interpretation Comments Eosinophils (%) (Auto) (test code = 713-8) 0.8 0.0-6.0 [facility] SystemBasophils (%) (Auto)2019-09-21 06:26:00* Test Item Value Reference Range Interpretation Comments Basophils (%) (Auto) (test code = 706-2) 0.1 0.0-1.0 [facility] SystemIM GRANULOCYTES %2019-09-21 06:26:00* Test Item Value Reference Range Interpretation Comments IM GRANULOCYTES % (test code = IM GRANULOCYTES %) 0.6 0.0- 1.0 [facility] SystemNeutrophils # (Auto)2019-09-21 06:26:00* Test Item Value Reference Range Interpretation Comments Neutrophils # (Auto) (test code = 751-8) 14.1 2.1-6.9 H [facility] SystemLymphocytes # (Auto)2019-09-21 06:26:00* Test Item Value Reference Range Interpretation Comments Lymphocytes # (Auto) (test code = 81321-9) 0.8 1.0-3.2 L [facility] SystemMonocytes # (Auto)2019-09-21 06:26:00* Test Item Value Reference Range Interpretation Comments Monocytes # (Auto) (test code = 742-7) 0.7 0.2-0.8 [facility] SystemEosinophils # (Auto)2019-09-21 06:26:00* Test Item Value Reference Range Interpretation Comments Eosinophils # (Auto) (test code = 711-2) 0.1 0.0-0.4 [facility] SystemBasophils # (Auto)2019-09-21 06:26:00* Test Item Value Reference Range Interpretation Comments Basophils # (Auto) (test code = 704-7) 0.0 0.0-0.1 [facility] SystemAbsolute Immature Granulocyte (auto 2019-09-21 06:26:00* Test Item Value Reference Range Interpretation Comments Absolute Immature Granulocyte (auto (ghanshyam t code = Absolute Immature Granulocyte (auto) 0.09 0-0.1 [facility] P6302[facility]67-77 16:18:00 [facility] [address] [place] [address] Patient Name: MARCUS GAONA MR #: [id number] : 1950 Age/Sex: 69/F Req #: [id number] Adm Physician: Ordered by: KATARINA MCCLOUD NP Report #: [id number] Location: ER Room/Bed: Procedure: [id number] CT/ CT ABDOMEN/PELVIS W Exam Date: 09/20/19 Exam Time: 1 530 REPORT STATUS: Signed CT Abd omen And Pelvis with Intravenous Contrast INDICATION: Abdominal pain, naus ea lower right abd pain [id number] TECHNIQUE: Thin collimation axial images obtained [...] SONIYA on 09/20/191624 COPY TO: KATARINA MCCLOUD FIELD SERVICE CONSULTANT Urine NCT5086-12-20 14:52:00* Test Item Value Reference Range Interpretation Comments Urine WBC (test code = 5821-4) 0-5 0-5 [facility] SystemU[facility] UUR9251-83-46 14:52:00* Test Item Value Reference Range Interpretation Comments Urine RBC (test code = 86635-1) 0-5 0-5 [facility] SystemU[facility] Lnuokpgo4218-06-22 14:52:00* Test Item Value Reference Range Interpretation Comments Urine Bacteria (test code = 96726-7) RARE NONE [facility] SystemU[facility] Epithelial Bzekg5026-76-70 14:52:00 * Test Item Value Reference Range Interpretation Comments Urine Epithelial Cells (test code = 91993-0) FEW NONE [facility] SystemUrine CWI8345-41-23 14:52:00* Test Item Value Reference Range Interpretation Comments Urine WBC (test code = 5821-4) 0-5 0-5 [facility] SystemU[facility] ITQ8600-01-16 14:52:00* Test Item Value Reference Range Interpretation Comments Urine RBC (test code = 55923-7) 0-5 0-5 [facility] SystemU[facility] Ntkfekeo2876-84-14 14:52:00* Test Item Value Reference Range Interpretation Comments Urine Bacteria (test code = 92715-0) RARE NONE [facility] SystemU[facility] Epithelial Udzym3438-66-19 14:52:00 * Test Item Value Reference Range Interpretation Comments Urine Epithelial Cells (test code = 31121-0) FEW NONE [facility] SystemTotal Guihcdbqj4470-26-53 14:51:00* Test Item Value Reference Range Interpretation Comments Total Bilirubin (test code = 1975-2) 0.6 0.2-1.2 [facility] SystemAspartate Amino Transf (AST/SGOT) 2019-09-20 14:51:00* Test Item Value Reference Range Interpretation Comments Aspartate Amino Transf (AST/SGOT) (test code = Aspartate Amino Transf (AST/SGOT)) 19 5-34 [facility] SystemAlanine Aminotransferase (ALT/SGPT) 2019-09-20 14:51:00* Test Item Value Reference Range Interpretation Comments Alanine Aminotransferase (ALT/SGPT) (test code = 1742-6) 16 0-55 [facility] SystemTotal Xrkykke5302-79-00 14:51:00* Test Item Value Reference Range Interpretation Comments Total Protein (test code = 2885-2) 7.4 6.5-8.1 [facility] SystemAlbumin2019-12-01 14:51:00* Test Item Value Reference Range Interpretation Comments Albumin (test code = 1751-7) 4.1 3.5-5.0 [facility] SystemGlobulin2019-12-01 14:51:00* Test Item Value Reference Range Interpretation Comments Globulin (test code = 62764-6) 3.3 2.3-3.5 [facility] SystemAlbumin/Globulin Evsnk4500-18-12 14:51:00 * Test Item Value Reference Range Interpretation Comments Albumin/Globulin Ratio (test code = 1759-0) 1.2 0.8-2.0 [facility] SystemAlkaline Bajbwjhnfaa4247-21-44 14:51:00* Test Item Value Reference Range Interpretation Comments Alkaline Phosphatase (test code = 6768-6) 80 40-150 [facility] SystemAmylase Bxrun7249-70-97 14:51:00* Test Item Value Reference Range Interpretation Comments Amylase Level (test code = 1798-8) 51 25-125 [facility] SystemLipase2019-12-01 14:51:00* Test Item Value Reference Range Interpretation Comments Lipase (test code = 3040-3) 30 8-78 [facility] SystemTotal Ewqzfhcpy1704-80-00 14:51:00* Test Item Value Reference Range Interpretation Comments Total Bilirubin (test code = 1975-2) 0.6 0.2-1.2 [facility] SystemAspartate Amino Transf (AST/SGOT) 2019-09-20 14:51:00* Test Item Value Reference Range Interpretation Comments Aspartate Amino Transf (AST/SGOT) (test code = Aspartate Amino Transf (AST/SGOT)) 19 5-34 [facility] SystemAlanine Aminotransferase (ALT/SGPT) 2019-09-20 14:51:00* Test Item Value Reference Range Interpretation Comments Alanine Aminotransferase (ALT/SGPT) (test code = 1742-6) 16 0-55 [facility] SystemTotal Icawggv3484-65-78 14:51:00* Test Item Value Reference Range Interpretation Comments Total Protein (test code = 2885-2) 7.4 6.5-8.1 [facility] SystemAlbumin2019-12-01 14:51:00* Test Item Value Reference Range Interpretation Comments Albumin (test code = 1751-7) 4.1 3.5-5.0 [facility] SystemGlobulin2019-12-01 14:51:00* Test Item Value Reference Range Interpretation Comments Globulin (test code = 69737-8) 3.3 2.3-3.5 [facility] SystemAlbumin/Globulin Njevk2049-31-57 14:51:00 * Test Item Value Reference Range Interpretation Comments Albumin/Globulin Ratio (test code = 1759-0) 1.2 0.8-2.0 [facility] SystemAlkaline Ccbousbsxvh4988-85-92 14:51:00* Test Item Value Reference Range Interpretation Comments Alkaline Phosphatase (test code = 6768-6) 80 40-150 [facility] SystemAmylase Yfspr5410-96-99 14:51:00* Test Item Value Reference Range Interpretation Comments Amylase Level (test code = 1798-8) 51 25-125 [facility] SystemLipase2019-12-01 14:51:00* Test Item Value Reference Range Interpretation Comments Lipase (test code = 3040-3) 30 8-78 [facility] SystemUrine Prmhu3896-48-00 14:38:00* Test Item Value Reference Range Interpretation Comments Urine Color (test code = 5778-6) YELLOW YELLOW [facility] SystemUrine Crtxypk3682-23-76 14:38:00* Test Item Value Reference Range Interpretation Comments Urine Clarity (test code = 91738-6) SL CLOUDY CLEAR [facility] SystemUrine Specific Anndlqy9797-93-41 14:38:00 * Test Item Value Reference Range Interpretation Comments Urine Specific [place] (test code = 5811-5) >=1.030 1.010-1.02 5 [facility] [id number] 14:38:00* Test Item Value Reference Range Interpretation Comments Urine pH (test code = 26478-2) 5.5 5-7 [facility] Leukocyte Eiidwkbj1498-26-97 14:38:00* Test Item Value Reference Range Interpretation Comments Urine Leukocyte Esterase (test code = 16875-3) TRACE NEGATIV E H [facility] Wkhcwxf8208-54-28 14:38:00* Test Item Value Reference Range Interpretation Comments Urine Nitrite (test code = 73991-2) NEGATIVE NEGATIVE [facility] Tmgmsht0096-58-63 14:38:00* Test Item Value Reference Range Interpretation Comments Urine Protein (test code = 02754-6) NEGATIVE NEGATIVE [facility] Glucose (UA)2019-09-20 14:38:00* Test Item Value Reference Range Interpretation Comments Urine Glucose (UA) (test code = 29051-7) NEGATIVE NEGATIVE [facility] Raqabln5211-16-84 14:38:00* Test Item Value Reference Range Interpretation Comments Urine Ketones (test code = 24624-4) 1+ NEGATIVE H [facility] Asyhhftuemzu1032-66-82 14:38:00* Test Item Value Reference Range Interpretation Comments Urine Urobilinogen (test code = 89142-9) 0.2 0.2-1 [facility] Rpftuagio8001-11-31 14:38:00* Test Item Value Reference Range Interpretation Comments Urine Bilirubin (test code = 1977-8) NEGATIVE NEGATIVE [facility] Evlvy4224-66-12 14:38:00* Test Item Value Reference Range Interpretation Comments Urine Blood (test code = 05394-3) NEGATIVE NEGATIVE [facility] Uucba4180-20-96 14:38:00* Test Item Value Reference Range Interpretation Comments Urine Color (test code = 5778-6) YELLOW YELLOW [facility] Cxnrnoh1343-46-56 14:38:00* Test Item Value Reference Range Interpretation Comments Urine Clarity (test code = 61499-6) SL CLOUDY CLEAR [facility] Specific Lenecvw6250-60-26 14:38:00 * Test Item Value Reference Range Interpretation Comments Urine Specific [place] (test code = 5811-5) >=1.030 1.010-1.02 5 [facility] [id number] 14:38:00* Test Item Value Reference Range Interpretation Comments Urine pH (test code = 31666-8) 5.5 5-7 [facility] Leukocyte Ufkfzwhh8910-34-51 14:38:00* Test Item Value Reference Range Interpretation Comments Urine Leukocyte Esterase (test code = 80526-2) TRACE NEGATIV E H [facility] Rrchzjz0988-83-42 14:38:00* Test Item Value Reference Range Interpretation Comments Urine Nitrite (test code = 93101-7) NEGATIVE NEGATIVE [facility] Hqxrknr9411-46-37 14:38:00* Test Item Value Reference Range Interpretation Comments Urine Protein (test code = 98344-0) NEGATIVE NEGATIVE [facility] Glucose (UA)2019-09-20 14:38:00* Test Item Value Reference Range Interpretation Comments Urine Glucose (UA) (test code = 25036-5) NEGATIVE NEGATIVE [facility] Hchyull7132-14-17 14:38:00* Test Item Value Reference Range Interpretation Comments Urine Ketones (test code = 47421-2) 1+ NEGATIVE H [facility] Lwbtptnwichs2451-53-73 14:38:00* Test Item Value Reference Range Interpretation Comments Urine Urobilinogen (test code = 96080-6) 0.2 0.2-1 [facility] Jtwtnphzy1785-55-12 14:38:00* Test Item Value Reference Range Interpretation Comments Urine Bilirubin (test code = 1977-8) NEGATIVE NEGATIVE [facility] Symah5027-13-29 14:38:00* Test Item Value Reference Range Interpretation Comments Urine Blood (test code = 06264-0) NEGATIVE NEGATIVE [facility]
[2020-09-02 16:30] VITALS: BP 135/67
[2020-09-02 16:34] VITALS: BP 135/67
[2020-09-02 16:46] VITALS: BP 135/67
[2020-09-02] MEDS: MORPHINE SULFATE INJ 4 MG/ML INJ 1ML IV PRN ×2 (17:00→22:32)
[2020-09-02] MEDS: SODIUM CHLORIDE 0.9% 1000ML 1,000 ML IV SCH ×2 (17:00→22:26)
[2020-09-02] MEDS: ONDANSETRON HCL INJ 2MG/ML 2ML 2 MG/ML VIAL IV PRN (18:39)
[2020-09-02] MEDS: HYDROCODONE/APAP 5MG-325MG TAB PO PRN (19:37)
[2020-09-02 20:00] VITALS: BP 131/70
--- NOTE | 2020-09-02 20:04 | Operative Report ---
DATE OF PROCEDURE: 09/02/2020 SURGEON: Yaakov Hilliard MD PREOPERATIVE DIAGNOSES: 1. Gastroesophageal reflux disease. 2. Hiatal hernia. 3. Chronic cholecystitis. 4. Cholelithiasis. POSTOPERATIVE DIAGNOSES: 1. Gastroesophageal reflux disease. 2. Hiatal hernia. 3. Chronic cholecystitis. 4. Cholelithiasis. PROCEDURES: Diagnostic laparoscopy, laparoscopic repair of hiatal hernia with fundoplication, and laparoscopic cholecystectomy. HOSPICE VOLUNTEER: None. ANESTHESIA: General endotracheal. INDICATIONS AND FINDINGS: The patient is a 70-year-old female, complains of dysphagia as well as epigastric abdominal pain. Workup revealed gastroesophageal reflux disease causing laryngeal irritation, hiatal hernia. She also was found to have gallstones. She has had episodes of severe epigastric abdominal pain lasting for hours, which required to go to the emergency room. At Surgery, the patient was found to have a moderate-sized hiatal hernia. Gallbladder contained multiple stones. Cystic duct was about 3 mm in diameter. Common bile duct was about 7 mm in diameter. Liver appeared normal. Lower abdomen appeared normal. TECHNIQUE: After adequate general endotracheal anesthesia with the patient supine position, the abdomen was prepped and draped in sterile fashion with ChloraPrep solution. Approximately 3 cm above the umbilicus left the midline skin, subcutaneous tissue was infiltrated with 0.5% Marcaine, a transverse incision was made. Abdominal wall was elevated and Veress needle was introduced. Pneumoperitoneum was then created. A 10 mm trocar and cannula was then passed through this wound. Laparoscopic camera was introduced. Initial laparoscopy revealed liver to be normal. Gallbladder was mildly distended. Lower abdomen appeared normal. A 10 mm trocar and cannula were placed in the right to the midline to the falciform ligament. A 5 mm trocar and cannula were placed left to the midline subxiphoid. 10 mm trocar and cannula placed left to anterior axillary line below the costal margin. A 10 mm trocar and cannula placed left side of the abdomen lateral to the umbilicus. These were all placed under direct vision. Left lobe of liver was elevated. Fundus of stomach was grasped, retracted inferiorly. There was a moderate-sized hiatal hernia. The lesser omentum was divided using a LigaSure device, exposing the esophageal hiatus. The peritoneum on the right side of the hiatus was divided using the LigaSure device. The right jose of the diaphragm at the hiatus was dissected free. The posterior vagus nerve was identified and preserved. The fundus of the stomach was then mobilized. Short gastric vessels were divided with LigaSure device and the peritoneal attachments to the left side of the esophageal hiatus also divided with LigaSure device completely delineated esophageal hiatus and the esophagus, care was taken not to injure the vagus nerves. The esophageal hiatus was then closed posterior to the esophagus using interrupted sutures of oh Ethibond. The fundus of the stomach was then passed posterior to the esophagus. A 56-Macedonian esophageal dilator was then passed. A 360-degree fundoplication was done, sutures taken from the fundus of the stomach on the left side of the esophagus which was brought anteriorly. Then suture was taken to the wall esophagus into the fundus, which had been brought behind the esophagus to complete 360-degree fundoplication. This was done with interrupted sutures of 0 Ethibond over distance of approximately 2-1/2 cm. Care was taken not to injure the vagus nerves. Once the fundoplication was completed, esophageal dilator was removed. Hemostasis was seen to be adequate, two 5 mm trocars and cannulas were then placed in the right upper quadrant. The fundus of the gallbladder was grasped, retracted superiorly. Neck of the gallbladder was grasped, retracted laterally. Peritoneum over the neck of the gallbladder was incised. The gallbladder and cystic duct junction were dissected free. The cystic artery was also dissected free. The neck of the gallbladder completely dissected free. Cystic artery divided between hemoclips close to the gallbladder. Cystic duct was also divided between hemoclips with three clips being left on the common bile duct side. The gallbladder was dissected free from the liver using scissors and electrocautery. Once it was entirely free, it was placed into an Endopouch and brought through the epigastric cannula contained multiple stones. Gallbladder bed was inspected for hemostasis which was seen to be adequate. It was irrigated with saline. All fluid was aspirated and inspected for hemostasis which was seen to be adequate. Instruments and cannulas were removed. Pneumoperitoneum was evacuated. Wounds were then closed. Fascia in the larger trocar wound was closed with 0 Vicryl. Skin to all wounds closed with 4-0 Vicryl in subcuticular fashion. Dermabond and sterile dressing were applied to each wound. The patient tolerated the procedure well. Estimated blood loss was 20 mL. There were no complications. All counts were correct. The patient was taken to the recovery room in satisfactory condition. MD JOSÉ LUIS Yoon/GUNNAR /[id number] cc: Clive Mccallum MD
[2020-09-02] MEDS ORDERED: CEFAZOLIN SOD 1 GM VIAL IV SCH (22:00)
[2020-09-02] MEDS: CEFAZOLIN SOD 2 GM/D5W 50ML 50 ML IV SCH (22:26)
[2020-09-03] VITALS (8 sets, daily range): BP systolic 114–140; BP diastolic 59–93
[2020-09-03] MEDS: ZOLPIDEM TARTRATE 10 MG TAB PO PRN ×2 (00:50→23:45)
--- NOTE | 2020-09-03 00:55 | NUR ---
CALLED MD LOZOYA. AWAITING CALL BACK.
--- NOTE | 2020-09-03 01:07 | NUR ---
SPOKE TO MD ALEGRE. NEW ORDERS RECEIVED.
--- NOTE | 2020-09-03 01:58 | NUR ---
PATIENT RESTING IN BED. ALERT AND ORIENTED. NO C/O PAIN AT THIS TIME. PATIENT STATES "I THINK THE AMBIEN WILL HELP ME SLEEP, WHICH WILL HELP MY THROAT."
[2020-09-03] MEDS: HYDROMORPHONE 1MG/1ML INJ IV PRN ×6 (04:06→21:21)
[2020-09-03 05:49] LABS: BASOPHILS % 0.3 % (0.0-1.0); EOSINOPHILS % 0.1 % (0.0-6.0); LYMPHOCYTES # (AUTO) 2.2 (1.0-3.2); LYMPHOCYTES % 18.5 % (18.0-39.1); MEAN CORPUSCULAR HEMOGLOBIN 29.4 pg (28-32); MEAN CORPUSCULAR HGB CONC 32.5 g/dL (31-35); MEAN CORPUSCULAR VOLUME 90.5 fL (81-99); MONOCYTES # (AUTO) 1.3 (0.2-0.8); MONOCYTES % 10.5 % (4.4-11.3); NEUTROPHILS # (AUTO) 8.4 (2.1-6.9); NEUTROPHILS % 70.3 % (38.7-80.0); PLATELET COUNT 233 x10e3/uL (140-360); RED BLOOD COUNT 4.42 x10e6/uL (3.6-5.1); RED CELL DISTRIBUTION WIDTH 13.7 % (11.7-14.4)
--- NOTE | 2020-09-03 07:00 | NUR ---
ASSUMED CARE. AAOX3. ACYANOTIC. RESTING IN BED. NO DISTRESS NOTED. CALL LIGHT IN REACH. SIDE RAILS UP X2. BED LOW AND LOCKED.
[2020-09-03] MEDS: CEFAZOLIN SOD 2 GM/D5W 50ML 50 ML IV SCH (07:09)
--- NOTE | 2020-09-03 07:14 | NUR ---
REPORT GIVEN TO DAYSHIFT NURSE. ALERT AND ORIENTED. RESTING IN BED. NO SIGNS IV INFILTRATION. BED LOCKED AND IN LOW POSITION. CALL LIGHT WITHIN REACH.
[2020-09-03] MEDS: PANTOPRAZOLE SOD 40 MG TABEC PO SCH (08:01)
[2020-09-03] MEDS: ATENOLOL 50 MG TAB PO SCH (08:13)
[2020-09-03] MEDS: ONDANSETRON HCL INJ 2MG/ML 2ML 2 MG/ML VIAL IV PRN (09:50)
[2020-09-03] MEDS: HYDROCODONE BIT/ACETAMINOPHEN 2.5 MG/108MG PER 5 ML SOLUTION PO PRN (10:37)
[2020-09-03] MEDS: SODIUM CHLORIDE 0.9% 1000ML 1,000 ML IV SCH ×2 (12:25→20:52)
[2020-09-04 04:00] VITALS: BP 117/62
[2020-09-04] MEDS: HYDROMORPHONE 1MG/1ML INJ IV PRN ×4 (04:20→23:14)
[2020-09-04] MEDS: SODIUM CHLORIDE 0.9% 1000ML 1,000 ML IV SCH ×2 (05:06→15:10)
--- NOTE | 2020-09-04 07:00 | NUR ---
ASSUMED CARE. AAOX3. ACYANOTIC. NO DISTRESS NOTED. PATIENT STANDING UP IN ROOM AT BEDSIDE. PATIENT STATES, "I'VE PASSED GAS THIS MORNING, AND I HAVE BEEN UP WALKING." CALL LIGHT IN REACH. BED LOW AND LOCKED.
--- NOTE | 2020-09-04 07:03 | NUR ---
REPORT GIVEN TO DAYSHIFT NURSE. ALERT AND RESTING AT BEDSIDE. NO SIGNS IV INFILTRATION. BED LOCKED AND IN LOW POSITION. CALL LIGHT WITHIN REACH.
[2020-09-04 07:32] VITALS: BP 130/79
[2020-09-04 08:00] VITALS: BP 130/79
[2020-09-04] MEDS: PANTOPRAZOLE SOD 40 MG TABEC PO SCH (08:25)
[2020-09-04] MEDS: ATENOLOL 50 MG TAB PO SCH (08:26)
[2020-09-04] MEDS: HYDROCODONE/APAP 5MG-325MG TAB PO PRN (10:22)
[2020-09-04 11:03] VITALS: BP 131/64
[2020-09-04 15:26] VITALS: BP 115/62
[2020-09-04] MEDS: HYDROCODONE BIT/ACETAMINOPHEN 2.5 MG/108MG PER 5 ML SOLUTION PO PRN (18:05)
--- NOTE | 2020-09-04 19:45 | NUR ---
BEDSIDE SHIFT REPORT RECEIVED FROM DAY RN. PT IS ALERT AND ORIENTED X3. RESPIRATIONS ARE EVEN AND UNLABORED. PT TOLERATING COLD LIQUIDS BETTER. PT VOIDING WITHOUT DIFFICULTY. PT AMBULATE TO BATHROOM WITH ONE ASSIST. 7 TROCHAR SITES ON ABD DRY AND INTACT. 22 G PIV RT WRIST- SITE HEALTHY. NS INFUSING AT 100 ML/HR.CALL LIGHT WITHIN REACH. BED LOCKED AND IN LOW POSITION.
[2020-09-04 20:00] VITALS: BP 131/73
[2020-09-05 00:16] VITALS: BP 111/66
[2020-09-05] MEDS: SODIUM CHLORIDE 0.9% 1000ML 1,000 ML IV SCH ×2 (01:14→12:24)
[2020-09-05] MEDS: ZOLPIDEM TARTRATE 10 MG TAB PO PRN (01:15)
[2020-09-05 05:04] VITALS: BP 113/60
[2020-09-05 08:10] VITALS: BP 118/63
[2020-09-05] MEDS: PANTOPRAZOLE SOD 40 MG TABEC PO SCH (08:54)
[2020-09-05] MEDS: ATENOLOL 50 MG TAB PO SCH (08:55)
--- NOTE | 2020-09-05 10:47 | NUR ---
EDUCATED ABOUT IMM, SIGNED, FILED IN CHART, WITH COPY LEFT WITH FAMILY AT BEDSIDE.
[2020-09-05 12:08] VITALS: BP 125/66
[2020-09-05] MEDS: HYDROCODONE BIT/ACETAMINOPHEN 2.5 MG/108MG PER 5 ML SOLUTION PO PRN (12:33)
[2020-09-05 16:22] VITALS: BP 127/72
--- NOTE | 2020-09-05 16:35 | NUR ---
Patient received discharge order from Dr. Hilliard. Patient was given thorough discharge instructions, education, and follow up information. Patient was also given detailed information about medication by the pharmacist. Patient verbalized understanding. Patient IV removed at 1400 and covered with a C/D/I dressing. Patient was wheeled to car at 1410 and had no issues or complaints.
== END 2020-09-05 16:10 | disposition home or self-care (01) | DRG 327 ==
LOC: OR 10:58 → PACU V 14:49 → MED/SURG 15:55 → OBSVTOIN 09-05 08:36
PROVIDERS: ADMIT Surgery; ATTEND Surgery
PROC: 0FT44ZZ Resection of Gallbladder, Percutaneous Endoscopic Approach (ICD-10-PCS; principal; 2020-09-05)
PROC: 0DV44ZZ Restriction of Esophagogastric Junction, Percutaneous Endoscopic Approach (ICD-10-PCS; 2020-09-05)
PROC: 0BQT4ZZ Repair Diaphragm, Percutaneous Endoscopic Approach (ICD-10-PCS; 2020-09-05)
DX: K21.9 Gastro-esophageal reflux disease without esophagitis (principal); K80.10 Calculus of gallbladder with chronic cholecystitis without obstruction; K44.9 Diaphragmatic hernia without obstruction or gangrene; R13.10 Dysphagia, unspecified; Z20.828 Contact with and (suspected) exposure to other viral communicable diseases
CPT/HCPCS: 36415; 71046; 80053; 85025; 88304; 93005; 96361; G0378; J0690; J1170; J2175; J2270; J2405; J3010; J7030; U0002

== ENCOUNTER 2025-06-07 12:06 | Emergency (ER) | payer MEDICARE, OTHER ==
[~2025-06-07] VITALS: Ht 165.1 cm; Wt 68.0 kg
[~2025-06-07 12:06] MED LIST changes: +PANTOPRAZOLE SO40 MG PO
[2025-06-07] MEDS: HYDROCODONE/APAP 5MG-325MG TAB PO ONE (13:52)
[2025-06-07] MEDS: KETOROLAC TROMETHAMINE 30 MG/ML VIAL IM STA (13:52)
[2025-06-07] MEDS: TETANUS/DIPHTHERIA TOX ADULT 0.5 ML SYR IM ONE (14:21)
[2025-06-07 14:30] VITALS: PULSE 86; RESP 18; TEMP 97.8; O2SAT 100
[2025-06-07] MEDS ORDERED: ULTRAM 50MG50 MG PO (14:51)
== END 2025-06-07 15:13 | disposition home or self-care (01) ==
LOC: ER 13:16
DX: M25.521 Pain in right elbow (principal); S52.121A Displaced fracture of head of right radius, initial encounter for closed fracture; S82.491A Other fracture of shaft of right fibula, initial encounter for closed fracture; W01.0XXA Fall on same level from slipping, tripping and stumbling without subsequent striking against object, initial encounter; Y93.01 Activity, walking, marching and hiking; Y92.481 Parking lot as the place of occurrence of the external cause; I10 Essential (primary) hypertension; G47.00 Insomnia, unspecified; F32.A Depression, unspecified; M19.09 Primary osteoarthritis, other specified site; Z87.19 Personal history of other diseases of the digestive system
CPT/HCPCS: 29125; 29515; 73060; 73080; 73562; 73610; 90471; 90714; 99283; J1885